=== PATIENT | male | born 1945 | race Caucasian/White ===

== ENCOUNTER → 2018-11-16 11:30 | Outpatient (CLI) | payer MEDICARE | END | disposition home or self-care (01) | LOC: D.CT 11:30 | DX: I70.219 Atherosclerosis of native arteries of extremities with intermittent claudication, unspecified extremity (principal); I71.4 Abdominal aortic aneurysm, without rupture ==

== ENCOUNTER → 2019-06-12 09:17 | Outpatient (CLI) | payer MEDICARE | END | disposition home or self-care (01) | LOC: D.US 09:17 | PROVIDERS: ATTEND Internal Medicine Cardiovascular Disease | DX: I71.4 Abdominal aortic aneurysm, without rupture (principal) ==

== ENCOUNTER 2020-03-25 11:44 | Inpatient (IN) | payer MEDICARE ==
[~2020-03-25] VITALS: Ht 165.1 cm; Wt 66.1 kg
--- NOTE | ~2020-03-25 | EC ---
PATIENT:CHYNA HICKEY DATE OF SERVICE: 03/25/20 SEX: M MEDICAL RECORD: [id number] DATE OF : 43 LOCATION:[facility] D230 AGE OF PATIENT: 74 ADMISSION DATE: 03/25/20 REFERRING PHYSICIAN: INTERPRETING PHYSICIAN: ANGEL LUIS ESCOBAR MD ECHOCARDIOGRAM REPORT ECHO CHARGES 5 ECHO LIMITED Date: 04/11/20 CLINICAL DIAGNOSIS: HUPOXEMIA, SHUNT ECHOCARDIOGRAPHIC MEASUREMENTS (adult normal given) AC root (d.<3.7cm) 0 cm LV Septum d (<1.2 cm> 0 cm Valve Excursion 0 cm LV Septum (systole) 0 cm Left Atria (s.<4.0cm> 0 cm LVPW d(<1.2cm) 0 cm RV (d.<2.3cm) 0 cm LVPW (sytole) 0 cm LV diastole(<5.6CM) 0 cm MV E-F(>70mm/sec) 0 cm LV systole 0 cm LVOT Diameter 1.9 cm MV exc.(>10mm) 0 cm Est.ejection fraction (50-75%) % DOPPLER: LVIT cm/sec A 0 cm/sec E 0 cm/sec LA 0 cm/sec RVSP 0 mmHg LVOT 0 cm/sec AOP1/2T 0 m/s Asc. Ao 0 cm/sec RVOT 0 cm/sec RA 0 cm/sec PA 0 cm/sec AV Gradient Peak 0 mmHg AV Mean 3.07 mmHg AV Area 0 cm MV Gradient Peak 0 mmHg MV Mean 0 mmHg MV Area 0 cm COMMENTS: Assembler Corncob Pipes: Albina WANGDAVID MELBA Patient Care: 3 Dr. Nunez TAPE# PACS Pericardial Effusion Y DATE OF SERVICE: This is actually a bubble study. Grossly, LVH appears present. LV internal dimension is normal. LV is mildly globally hypokinetic, EF at lower limits of normal, mildly reduced at 40% to 45%. Aortic valve is tricuspid. No evidence of stenosis by Doppler interrogation. Left atrium grossly appears normal. Mitral valve shows no prolapse. Trivial MR. Right-sided chamber grossly normal. Mild TR. ECHOCARDIOGRAM REPORT [id number] CHYNA HICKEY Bubble study was performed with venous contrast and this showed no evidence of ASD, VSD or PFO. TRANSINT:[id number] Voice Confirmation ID: [id number] DOCUMENT ID: [id number] ANGEL LUIS ESCOBAR MD CC: [id number] DICTATION DATE: 04/12/20 0958 PATIENT CARE ASSISTANT: 04/12/20 1506 ADM IN [place] [id number] [place] [id number]
[2020-03-25] MEDS ORDERED: K-DUR20 MEQ PO (11:52)
[2020-03-25] MEDS ORDERED: LASIX80 MG PO (11:53)
[2020-03-25] MEDS ORDERED: LISINOPRIL5 MG PO (11:53)
[2020-03-25] MEDS ORDERED: MIDODRINE HCL10 MG PO (11:53)
[2020-03-25] MEDS ORDERED: LIPITOR40 MG PO (11:53)
[2020-03-25] MEDS ORDERED: ELIQUIS5 MG PO (11:54)
[2020-03-25] MEDS ORDERED: ALBUTEROL SULF8.5 GM INH (11:55)
[2020-03-25] MEDS ORDERED: IPRAT-ALBUT 0.5-3 ML UPD (11:55)
[2020-03-25 12:38] LABS: BASOPHILS 0.5 % (0-2); EOSINOPHILS 1.7 % (0-7); HEMATOCRIT 35.9 % (42.0-54.0); HEMOGLOBIN 11.3 g/dL (13.5-17.5); IMMATURE GRANULOCYTES 0.3 % (0-5); LYMPHOCYTES 23.2 % (15-50); MCH 28.5 pg (26.0-34.0); MCHC 31.5 g/dL (31.0-37.0); MCV 90.7 fL (80.0-100.0); MEAN PLATELET VOLUME 10.2 fL (7.4-10.4); NEUTROPHILS 66.3 % (40-80); PLATELET COUNT 192 10x3/uL (130-400); RBC 3.96 10x6/uL (4.20-6.10); WBC 7.7 10x3/uL (4.8-10.8)
[2020-03-25 12:55] LABS: ALBUMIN 3.9 g/dL (3.4-5.0); ALKALINE PHOSPHATASE 74 U/L (30-120); ALT (SGPT) 26 U/L (10-68); CALC OSMOLALITY 306 mosm/kg (275-300); CALCIUM 8.4 mg/dL (8.5-10.1); CARBON DIOXIDE 16.2 mmol/L (21.0-32.0); CHLORIDE - SERUM 104 mmol/L (98-107); CKMB 2.2 U/L (0.0-3.6); CREATINE KINASE 52 UL (21-232); CREATININE - SERUM 7.5 mg/dL (0.6-1.3); GLUCOSE 98 mg/dL (74-106); MAGNESIUM - SERUM 1.5 mg/dL (1.8-2.4); PROTEIN - SERUM 7.8 g/dL (6.4-8.2); SODIUM 136 mmol/L (136-145); TROPONIN-I 0.023 ng/mL (0.000-0.060); UREA NITROGEN 110 mg/dL (7-18); eGFR NON AFRICAN AMERICAN 8 mL/min (90-120)
[2020-03-25 12:59] LABS: POTASSIUM - SERUM 6.4 mmol/L (3.5-5.1)
[2020-03-25 13:00] VITALS: BP 86/53
[2020-03-25 13:04] LABS: BACTERIA MODERATE /hpf (NEGATIVE); BILIRUBIN NEGATIVE (NEGATIVE); EPITHELIAL CELLS 0-5 /hpf (0-5); GLUCOSE NEGATIVE (NEGATIVE); KETONE NEGATIVE (NEGATIVE); NITRITE NEGATIVE (NEGATIVE); RED CELLS - URINE 0-5 /hpf (0-5); SPECIFIC GRAVITY 1.015 (1.005-1.020); UROBILINOGEN NORMAL (NORMAL)
[2020-03-25 13:05] LABS: CALCIUM OXALATE CRYSTALS OCC /hpf (NONE SEEN); HYALINE CAST 0-5 /lpf (NONE SEEN)
[2020-03-25 14:00] VITALS: BP 88/61
[2020-03-25 15:15] VITALS: BP 91/45
--- NOTE | 2020-03-25 15:36 | NUR ---
RECEIVED PT FROM ER, HOOKED PT O2 UP TO WALL, 2LITERS VIA NASAL CANNULA. NS RUNNING AT 200 INTO AN IV IN THE LEFT HAND. RESTING COMFORTABLY, DENIES ANY NEEDS. WILL CONTINUE TO MONITOR.
[2020-03-25 16:10] VITALS: BP 135/55
--- NOTE | 2020-03-25 16:14 | NUR ---
PT RESTING COMFORTABLY IN BED. DENIES ANY NEEDS AT THIS TIME. BED IN LOWEST POSITION, CALL LIGHT WITHIN REACH. WILL CONTINUE TO MONITOR.
[2020-03-25 16:22] VITALS: BP 91/45; BMI 22.1
--- NOTE | 2020-03-25 17:25 | NUR ---
ADMINISTERED MEDICATION, HUNG IV FLUIDS. PT UP RIGHT IN BED EATING DINNER. DENIES ANY NEEDS. BED IN LOWEST POSITION, BED RAILS X2, CALL LIGHT WITHIN REACH. WILL CONTINUE TO MONITOR.
[2020-03-25 17:31] LABS: APTT 40.8 SECONDS (22.8-39.4); INR 1.84 (0.85-1.17)
[2020-03-25 17:42] LABS: ANION GAP 23.6 mmol/L (8-16); CALCIUM 8.9 mg/dL (8.5-10.1); CARBON DIOXIDE 13.4 mmol/L (21.0-32.0); CREATININE - SERUM 6.8 mg/dL (0.6-1.3)
--- NOTE | 2020-03-25 18:23 | NUR ---
HUNG IV ANTIBIOTICS, TOLERATING WELL. RESTING COMFORTABLY IN BED, COMPLAINT OF BEING COLD, TURNED HEATER UP FOR PT. DENIES ANY OTHER NEEDS. WILL CONTINUE TO MONITOR.
--- NOTE | 2020-03-25 19:15 | NUR ---
REPORT RECEIVED, WILL CONTINUE POC. PATIENT IS AAOX4, LYING IN SEMI-FOWLERS POSITION. RR EVEN AND UNLABORED ON 2L NC, NO S/S OF DISTRESS OBSERVED. PIV TO LT HAND INFUSING LR @ 200ML/HR. PATIENT DENIES NEEDS AT THIS TIME. CL IN REACH, BED LOCKED AND LOWERED. WILL CTM.
[2020-03-25 22:16] VITALS: BP 88/45
[2020-03-26 00:40] VITALS: BP 89/53
--- NOTE | 2020-03-26 01:49 | NUR ---
I have reviewed this patient and I concur with the Shift Assessment completed by the Licensed Practical Nurse today this shift.
[2020-03-26 04:29] LABS: BILIRUBIN NEGATIVE (NEGATIVE); GLUCOSE NEGATIVE (NEGATIVE); KETONE NEGATIVE (NEGATIVE); NITRITE NEGATIVE (NEGATIVE); SPECIFIC GRAVITY 1.015 (1.005-1.020); UROBILINOGEN NORMAL (NORMAL)
[2020-03-26 04:31] LABS: BACTERIA NONE SEEN /hpf (NEGATIVE); EPITHELIAL CELLS 0-5 /hpf (0-5); RED CELLS - URINE NONE SEEN /hpf (0-5); WHITE CELLS - URINE 0-5 /hpf (NEGATIVE)
[2020-03-26 05:29] VITALS: BP 108/68
[2020-03-26 05:49] LABS: BASOPHILS 0.3 % (0-2); EOSINOPHILS 0.3 % (0-7); HEMATOCRIT 31.5 % (42.0-54.0); HEMOGLOBIN 10.1 g/dL (13.5-17.5); IMMATURE GRANULOCYTES 0.2 % (0-5); LYMPHOCYTES 4.7 % (15-50); MCH 28.5 pg (26.0-34.0); MCHC 32.1 g/dL (31.0-37.0); MEAN PLATELET VOLUME 10.4 fL (7.4-10.4); MONOCYTES 5.6 % (2-11); NEUTROPHILS 88.9 % (40-80); PLATELET COUNT 160 10x3/uL (130-400); RBC 3.55 10x6/uL (4.20-6.10); RDW 18.1 % (11.5-14.5); WBC 8.8 10x3/uL (4.8-10.8)
[2020-03-26 06:23] LABS: ALBUMIN 3.2 g/dL (3.4-5.0); ALKALINE PHOSPHATASE 67 U/L (30-120); AMYLASE - SERUM 39 U/L (25-115); BILIRUBIN - TOTAL 0.37 mg/dL (0.2-1.3); CALCIUM 8.3 mg/dL (8.5-10.1); CHLORIDE - SERUM 108 mmol/L (98-107); CREATINE KINASE 127 UL (21-232); CREATININE - SERUM 5.9 mg/dL (0.6-1.3); PHOSPHOROUS 5.9 mg/dL (2.5-4.9); POTASSIUM - SERUM 5.1 mmol/L (3.5-5.1); PRO BNP 2187 pg/mL (0-450); SODIUM 141 mmol/L (136-145); TROPONIN-I 0.043 ng/mL (0.000-0.060); UREA NITROGEN 93 mg/dL (7-18); URIC ACID 13.7 mg/dL (2.6-7.2); eGFR NON AFRICAN AMERICAN 10 mL/min (90-120)
[2020-03-26 06:29] LABS: MCV 88.7 fL (80.0-100.0)
[2020-03-26 06:41] LABS: ALT (SGPT) 15 U/L (10-68); CALC OSMOLALITY 312 mosm/kg (275-300); CARBON DIOXIDE 18.1 mmol/L (21.0-32.0); GLUCOSE 148 mg/dL (74-106)
[2020-03-26 08:40] VITALS: BP 92/45
[2020-03-26 11:29] VITALS: BP 145/49
[2020-03-26 12:42] VITALS: Ht 165.1 cm; Wt 66.1 kg
--- NOTE | 2020-03-26 14:12 | NUR ---
I have reviewed this patient and I concur with the Shift Assessment completed by the Licensed Practical Nurse today this shift.
[2020-03-26 15:56] VITALS: BP 102/63
--- NOTE | 2020-03-26 16:59 | NUR ---
GOLF [employer]UB HEAD INSPECTOR AND ADJUSTER STATED TO ME SHE HELPED PT TO BATHROOM AND IT LOOKED LIKE PT HAD BLOOD IN STOOL. I VERBALIZED UNDERSTANDING. CALLED AND SPOKE WITH JOSE MANUEL CARVAJAL AND STATED THIS TO HER AND SHE STATES TO ORDER AN OCCULT BLOOD STOOL. I VERBALIZED UNDERSTANDING. HTO PLACED IN COMMODE FOR COLLECTION AND EXPLAINED HOW TO COLLECT TO PT.
--- NOTE | 2020-03-26 17:16 | NUR ---
THIS NURSE AND SHAHNAZ CARVAJAL SPOKE WITH PT'S BROTHER OVER THE PHONE AND GVE HIM AN UPDATE ON PT.
--- NOTE | 2020-03-26 19:35 | NUR ---
REPORT RECEIVED, WILL CONTINUE POC. PATIENT IS AAOX4, LYING IN SEMI-FOWLERS POSITION. NO S/S OF DISTRESS OBSERVED, RR EVEN AND UNLABORED ON 2L O2 VIA NC. PIV TO LT FA INFUSING SODIUM BICARB @ 40ML/HR. PATIENT DENIES NEEDS AT THIS TIME. CL IN REACH, BED LOCKED AND LOWERED. WILL CTM.
[2020-03-26 20:00] VITALS: BP 104/71
--- NOTE | 2020-03-26 20:19 | NUR ---
PATIENT HAD MED CLEAR, MUCOUS TINGED WITH BRIGHT RED BLOOD BM. TRAILED IT ALL THE WAY TO THE BATHROOM. WAS ABLE TO OBTAIN A SAMPLE FOR THE HAT IN HIS TOILET AND SENT TO LAB. ASSISTED PATIENT INTO SHOWER TO CLEAN UP.
--- NOTE | 2020-03-26 23:23 | NUR ---
TELEMETRY TECHNICIAN REPORTED PATIENT BP 83/47, PATIENT DOES NOT HAVE PRN MED THAT WAS STATED IN REPORT FROM DAY SHIFT NURSE. PAGED CHANDU AVENDAÑO APN.
[2020-03-27] VITALS: BP 83/47
--- NOTE | 2020-03-27 00:10 | NUR ---
PAGED CARDIOLOGY AGAIN.
--- NOTE | 2020-03-27 00:42 | NUR ---
STILL NO RETURN CALL FROM CARDIOLOGY. PAGED AGAIN.
--- NOTE | 2020-03-27 00:45 | NUR ---
NEW ORDERS RECEIVED FROM SATHISH OSBORNE APN
--- NOTE | 2020-03-27 02:22 | NUR ---
I have reviewed this patient and I concur with the Shift Assessment completed by the Licensed Practical Nurse today this shift.
[2020-03-27 04:00] VITALS: BP 75/45
[2020-03-27 04:50] LABS: BASOPHILS 0.1 % (0-2); EOSINOPHILS 0.1 % (0-7); HEMATOCRIT 30.7 % (42.0-54.0); HEMOGLOBIN 9.8 g/dL (13.5-17.5); IMMATURE GRANULOCYTES 0.3 % (0-5); LYMPHOCYTES 6.7 % (15-50); MCH 28.2 pg (26.0-34.0); MCHC 31.9 g/dL (31.0-37.0); MCV 88.5 fL (80.0-100.0); MEAN PLATELET VOLUME 10.3 fL (7.4-10.4); MONOCYTES 7.9 % (2-11); NEUTROPHILS 84.9 % (40-80); PLATELET COUNT 147 10x3/uL (130-400); RBC 3.47 10x6/uL (4.20-6.10); RDW 18.2 % (11.5-14.5)
[2020-03-27 04:53] LABS: WBC 14.2 10x3/uL (4.8-10.8)
[2020-03-27 04:59] LABS: APTT 40.5 SECONDS (22.8-39.4); INR 2.19 (0.85-1.17)
[2020-03-27 05:29] LABS: ALBUMIN 2.7 g/dL (3.4-5.0); BILIRUBIN - TOTAL 0.42 mg/dL (0.2-1.3); PHOSPHOROUS 5.2 mg/dL (2.5-4.9); THYROID STIMULATING HORMONE 0.88 uIU/mL (0.36-3.74)
[2020-03-27 05:32] LABS: ANION GAP 13.7 mmol/L (8-16); CARBON DIOXIDE 24.1 mmol/L (21.0-32.0); CREATININE - SERUM 3.8 mg/dL (0.6-1.3); MAGNESIUM - SERUM 1.1 mg/dL (1.8-2.4); POTASSIUM - SERUM 3.8 mmol/L (3.5-5.1)
--- NOTE | 2020-03-27 08:52 | NUR ---
RECEIVED PT. REPORTED TO BE ALERT AND ORIENTED, UP ADLIB. PT HAS STRICT I&O'S. LOW BP REPORTED BUT IS ASTMPTOMATIC. 2L OF O2 VIA NASAL CANNULA, PT IS A CHRONIC O2 USER. LEFT FOREARM IV WITH BICARB @ 40. WEARING TELMETRY. PT IS RESTING COMFORTABLY IN BED, ALERT AND ORIENTED X4 UPON ENTERING. DENIES ANY NEEDS AT THIS TIME. WILL CONTINUE TO MONITOR.
[2020-03-27 09:09] LABS: HEPATITIS C ANTIBODY <0.1 S/CO RAT (0.0-0.9)
--- NOTE | 2020-03-27 10:27 | NUR ---
ADMINISTERED MAGNESIUM PER PROTOCOL FOR LOW MAG LEVELS. NO DIFFICULTY. PT RESTING COMFORTABLY IN BED. DENIES ANY NEEDS AT THIS TIME. WILL CONTINUE TO MONITOR.
[2020-03-27 11:09] VITALS: BP 78/50
--- NOTE | 2020-03-27 12:21 | NUR ---
ADMINISTERED PO ANTIBIOTICS AT THIS TIME, NO DIFFICULTY. PT IS RESTING COMFORTABLY IN BED AT THIS TIME. DENIES ANY NEEDS. WILL CONTINUE TO MONITOR.
--- NOTE | 2020-03-27 13:25 | NUR ---
I have reviewed this patient and I concur with the Shift Assessment completed by the Licensed Practical Nurse today this shift.
[2020-03-27 13:55] VITALS: BP 76/41
[2020-03-27 18:31] VITALS: BP 82/53
--- NOTE | 2020-03-27 19:10 | NUR ---
REPORT RECEIVED, WILL CONTINUE POC. PATIENT IS AAOX4, LYING IN SEMI-FOWLERS POSITION. NO S/S OF DISTRESS OBSERVED, RR EVEN AND UNLABORED ON 2L O2 VIA NC. PIV TO LT FA INFUSING PLASMALYTE. PATIENT DENIES NEEDS AT THIS TIME. CL IN REACH, BED LOCKED AND LOWERED. WILL CTM.
[2020-03-27 20:00] VITALS: BP 71/42
--- NOTE | 2020-03-28 02:44 | NUR ---
I have reviewed this patient and I concur with the Shift Assessment completed by the Licensed Practical Nurse today this shift.
[2020-03-28 04:00] VITALS: BP 90/52
[2020-03-28 04:52] LABS: BASOPHILS 0.2 % (0-2); EOSINOPHILS 0.2 % (0-7); HEMATOCRIT 29.1 % (42.0-54.0); HEMOGLOBIN 9.3 g/dL (13.5-17.5); IMMATURE GRANULOCYTES 0.1 % (0-5); LYMPHOCYTES 8.5 % (15-50); MCH 28.4 pg (26.0-34.0); MEAN PLATELET VOLUME 10.8 fL (7.4-10.4); PLATELET COUNT 153 10x3/uL (130-400); RBC 3.27 10x6/uL (4.20-6.10); RDW 17.9 % (11.5-14.5); WBC 14.6 10x3/uL (4.8-10.8)
[2020-03-28 05:04] LABS: % SATURATION 7 % (15-55); ALBUMIN 2.6 g/dL (3.4-5.0); ANION GAP 14.1 mmol/L (8-16); BILIRUBIN - DIRECT 0.13 mg/dL (0.00-0.30); BILIRUBIN - INDIRECT 0.35 mg/dL (0.00-1.00); BILIRUBIN - TOTAL 0.48 mg/dL (0.2-1.3); CALCIUM 8.3 mg/dL (8.5-10.1); CARBON DIOXIDE 26.3 mmol/L (21.0-32.0); IRON 17 ug/dl (35-150); MAGNESIUM - SERUM 1.4 mg/dL (1.8-2.4); PHOSPHOROUS 4.2 mg/dL (2.5-4.9); POTASSIUM - SERUM 3.4 mmol/L (3.5-5.1); PROTEIN - SERUM 6.2 g/dL (6.4-8.2); TOTAL IRON BIND CAPACITY 242 ug/dl (260-445); UNSAT IRON BIND CAPACITY 225 ug/dl (150-375)
[2020-03-28 05:05] LABS: CREATININE - SERUM 2.7 mg/dL (0.6-1.3)
[2020-03-28 09:14] VITALS: BP 101/66
--- NOTE | 2020-03-28 09:39 | NUR ---
CALLED AND SPOKE WITH KIRBY IN PHARMACY AND STATED TO HER FLOLATRICIA WAS NEVER BROUGHT UP. SHE STATES SHE WILL BRING IT UP TO ME. I VERBALIZED UNDERSTANDING.
--- NOTE | 2020-03-28 10:01 | NUR ---
PT ONLY WANTS TO TAKE 20MEQ AND NOT THE 40MEQ AND TO HAVE POTASSIUM LEVEL CHECKED IN AM NOT IN FOUR HOURS CALLED [facility] IN ELECTROLYE PROTOCOL. ANNUSOL SUPPOSITORY GIVEN PT TOLERATED WELL. NOTED SLOW TO ELROY REDNESS TO COCCYX AND BUTTOCK. REMINDED PT TO TURN Q2H. PT VERBALIZED UNDERSTANDING. ASKED PT IF HE WOULD LIKE SOME BUTTPASTE AND PT DENIED NEED FOR BUTTPASTE. WORKED WITH PT ON INCENTIVE SPIROMETRY.
[2020-03-28 12:18] VITALS: BP 82/47
--- NOTE | 2020-03-28 12:29 | NUR ---
Nutrition Follow-up: PO intake has been poor but pt reports eating some cereal for breakfast and requested a tuna salad sandwich for lunch. Denies N/V. Loose BM this AM. Noted diet liberalized. Refuses nutrition supplements. Diet: Regular PO intake: 0% yesterday Wt: 136# (03/27); 133# (03/26) Labs noted: K+ 3.4, PO4 4.2, Alb 2.6 Meds noted: Pepcid, electrolyte protocol -Encourage PO intake and honor food preferences; tuna salad sandwich ordered for pt's lunch today. -Monitor wt; noted daily wts ordered. -RD following.
--- NOTE | 2020-03-28 16:18 | NUR ---
I have reviewed this patient and I concur with the Shift Assessment completed by the Licensed Practical Nurse today this shift.
[2020-03-28 17:15] VITALS: BP 96/64
--- NOTE | 2020-03-28 19:17 | NUR ---
BEDSIDE REPORT RECEIVED, PT CARE ASSUMED. INTRODUCED SELF AND WROTE NAME ON BOARD. PT SITTING UP IN BED, WATCHING TV, AAOX4. DENIES ANY NEEDS AT THIS TIME. BED IN LOWEST POSITION, SR X1, CALL LIGHT AND URINAL WITHIN REACH. WILL CONTINUE TO MONITOR.
[2020-03-28 21:21] VITALS: BP 84/45
[2020-03-29] VITALS: BP 77/44
[2020-03-29 04:49] VITALS: BP 77/42
[2020-03-29 05:06] LABS: BASOPHILS 0.2 % (0-2); HEMATOCRIT 31.2 % (42.0-54.0); HEMOGLOBIN 9.8 g/dL (13.5-17.5); IMMATURE GRANULOCYTES 0.2 % (0-5); LYMPHOCYTES 21.1 % (15-50); MCH 28.6 pg (26.0-34.0); MCHC 31.4 g/dL (31.0-37.0); MEAN PLATELET VOLUME 10.3 fL (7.4-10.4); MONOCYTES 11.3 % (2-11); NEUTROPHILS 65.2 % (40-80); PLATELET COUNT 181 10x3/uL (130-400); RBC 3.43 10x6/uL (4.20-6.10); RDW 18.2 % (11.5-14.5); WBC 12.1 10x3/uL (4.8-10.8)
[2020-03-29 05:28] LABS: ALBUMIN 2.6 g/dL (3.4-5.0); ANION GAP 15.3 mmol/L (8-16); BILIRUBIN - TOTAL 0.24 mg/dL (0.2-1.3); CALCIUM 8.3 mg/dL (8.5-10.1); CARBON DIOXIDE 23.1 mmol/L (21.0-32.0); MAGNESIUM - SERUM 1.7 mg/dL (1.8-2.4); POTASSIUM - SERUM 3.4 mmol/L (3.5-5.1); PROTEIN - SERUM 6.3 g/dL (6.4-8.2)
[2020-03-29 05:34] LABS: PHOSPHOROUS 2.7 mg/dL (2.5-4.9)
--- NOTE | 2020-03-29 08:59 | NUR ---
PT ALERT X 4. BREATH SOUNDS DIMINISHED, 5L O2 PER NC. IV TO LEFT FOREARM, PATENT, DRESSING CDI. BUTTOCKS REDDENED, MEPILEX APPLIED AND REMINDED PT TO TURN OFF OF BACK MUCH POSSIBLE. PT REPORTING NO PAIN AT THIS TIME. BED LOW, CALL LIGHT IN REACH. NO OTHER NEEDS AT THIS TIME.
[2020-03-29 10:44] VITALS: BP 94/50
[2020-03-29 12:59] VITALS: BP 86/50
[2020-03-29 16:00] VITALS: BP 107/42
--- NOTE | 2020-03-29 19:15 | NUR ---
BEDSIDE REPORT RECEIVED, PT CARE ASSUMED. WROTE NAME ON BOARD. PT SITTING UP IN BED, WATCHING TV, AAOX4. REQUESTED ICE WATER, PROVIDED. DENIES ANY OTHER NEEDS AT THIS TIME. BED IN LOWEST POSITION, SR X2, CALL LIGHT AND URINAL WITHIN REACH. WILL CONTINUE TO MONITOR.
[2020-03-29 20:00] VITALS: BP 90/55
[2020-03-30] VITALS: BP 92/55
[2020-03-30 04:00] VITALS: BP 99/52
[2020-03-30 05:37] LABS: BASOPHILS 0.4 % (0-2); EOSINOPHILS 3.2 % (0-7); HEMATOCRIT 27.2 % (42.0-54.0); HEMOGLOBIN 8.5 g/dL (13.5-17.5); IMMATURE GRANULOCYTES 0.3 % (0-5); LYMPHOCYTES 22.9 % (15-50); MCH 28.5 pg (26.0-34.0); MCHC 31.3 g/dL (31.0-37.0); MCV 91.3 fL (80.0-100.0); MEAN PLATELET VOLUME 9.7 fL (7.4-10.4); MONOCYTES 10.5 % (2-11); NEUTROPHILS 62.7 % (40-80); PLATELET COUNT 182 10x3/uL (130-400); RBC 2.98 10x6/uL (4.20-6.10); RDW 18.3 % (11.5-14.5)
[2020-03-30 05:38] LABS: WBC 7.2 10x3/uL (4.8-10.8)
[2020-03-30 05:59] LABS: ALBUMIN 2.2 g/dL (3.4-5.0); ANION GAP 9.6 mmol/L (8-16); BILIRUBIN - TOTAL 0.15 mg/dL (0.2-1.3); CALCIUM 7.8 mg/dL (8.5-10.1); CARBON DIOXIDE 27.2 mmol/L (21.0-32.0); MAGNESIUM - SERUM 1.8 mg/dL (1.8-2.4); POTASSIUM - SERUM 3.8 mmol/L (3.5-5.1); PROTEIN - SERUM 5.6 g/dL (6.4-8.2)
[2020-03-30 06:08] LABS: CREATININE - SERUM 1.4 mg/dL (0.6-1.3); PHOSPHOROUS 1.7 mg/dL (2.5-4.9)
[2020-03-30 09:18] VITALS: BP 118/68
[2020-03-30 12:56] VITALS: BP 104/59
[2020-03-30 17:23] VITALS: BP 114/55
--- NOTE | 2020-03-30 19:20 | NUR ---
RECEIVED REPORT, WILL ASSUME CARE OF PT, WATCHING TV, DENIES ANY NEEDS AT THIS TIME, BED IS LOW, SRX2, CALL LIGHT IN REACH, WILL CONTINUE PLAN OF CARE
[2020-03-30 20:00] VITALS: BP 124/49
[2020-03-31] VITALS: BP 136/57
[2020-03-31 04:00] VITALS: BP 106/66
--- NOTE | 2020-03-31 05:15 | NUR ---
I have reviewed this patient and I concur with the Shift Assessment completed by the Licensed Practical Nurse today this shift.
[2020-03-31 05:57] LABS: BASOPHILS 0.4 % (0-2); EOSINOPHILS 2.8 % (0-7); HEMATOCRIT 27.5 % (42.0-54.0); HEMOGLOBIN 8.5 g/dL (13.5-17.5); IMMATURE GRANULOCYTES 0.2 % (0-5); MCH 28.4 pg (26.0-34.0); MCHC 30.9 g/dL (31.0-37.0); MEAN PLATELET VOLUME 9.7 fL (7.4-10.4); MONOCYTES 14.1 % (2-11); NEUTROPHILS 64.5 % (40-80); PLATELET COUNT 202 10x3/uL (130-400); RBC 2.99 10x6/uL (4.20-6.10); RDW 18.5 % (11.5-14.5); WBC 8.2 10x3/uL (4.8-10.8)
[2020-03-31 06:42] LABS: ALBUMIN 2.3 g/dL (3.4-5.0); ANION GAP 11.8 mmol/L (8-16); BILIRUBIN - TOTAL 0.2 mg/dL (0.2-1.3); CALCIUM 7.8 mg/dL (8.5-10.1); CREATININE - SERUM 1.2 mg/dL (0.6-1.3); MAGNESIUM - SERUM 1.9 mg/dL (1.8-2.4); PHOSPHOROUS 1.8 mg/dL (2.5-4.9); POTASSIUM - SERUM 3.8 mmol/L (3.5-5.1); PROTEIN - SERUM 5.7 g/dL (6.4-8.2)
[2020-03-31 08:13] VITALS: BP 111/65
--- NOTE | 2020-03-31 12:03 | NUR ---
Pt has nonblanchable redness to his coccyx area. No open skin is noted. Recommend using calmoseptine cream to area as he is incontinent of bowels and it will help protect the skin. Discussed with him turning/repositioning to decrease pressure to the area, he voiced understanding but will require reminding to do so. Wound care will monitor.
[2020-03-31 12:21] VITALS: BP 107/59
--- NOTE | 2020-03-31 12:53 | MORECARE ---
CASE MANAGEMENT DISCHARGE SUMMARY PATIENT: CHYNA HICKEY UNIT: [id number] ADM DATE: 03/25/20 AGE: 74 : 44 SEX: M ROOM/BED: D.2106 AUTHOR: SUSIE RILEY PHYSICIAN: REFERRING PHYSICIAN: JUAN CARLOS ROMERO MD DATE OF SERVICE: 03/31/20 Discharge Plan Patient Name: CHYNA HICKEY [facility] [facility] 1945 Planned Disposition: Home or Self Care Anticipated Discharge Date: Discharge Date: Expected LOS: Initial Reviewer: [email or web address] Initial Review Date: 03/25/2020 Generated: 03/31/20 1:53 pm Patient Name: CHYNA HICKEY Page 12074 at 1253 All edits/amendments must be made on the electronic document DICTATION DATE: 03/31/20 1253 PRODUCTION MATERIAL HANDLER: JEREMIE 03/31/20 1253 RPT#: [id number] DC DATE: STATUS: ADM IN [facility] [address] [place] [address] END OF REPORT
--- NOTE | 2020-03-31 13:01 | MORECARE ---
CASE MANAGEMENT DISCHARGE SUMMARY PATIENT: CHYNA HICKEY UNIT: [id number] ADM DATE: 03/25/20 AGE: 74 : 44 SEX: M ROOM/BED: D.2106 AUTHOR: SUSIE RILEY PHYSICIAN: REFERRING PHYSICIAN: JUAN CARLOS ROMERO MD DATE OF SERVICE: 03/31/20 Discharge Plan Patient Name: CHYNA HICKEY [facility] [facility] 1945 Planned Disposition: Home or Self Care Anticipated Discharge Date: Discharge Date: Expected LOS: Initial Reviewer: [email or web address] Initial Review Date: 03/25/2020 Generated: 03/31/20 2:01 pm DCPIA - Discharge Planning Initial Assessment Updated by [email or web address]: Kathleen Miramontes on 03/31/20 12:55 pm * Is the patient Alert and Oriented? Yes * How many steps to enter\exit or inside your home? 5 w/rails * PCP Dr. Kelsea West * Pharmacy [facility] * Preadmission Environment Home with Family * ADLs Independent * Equipment Oxygen Rolling Walker * Other Equipment Portable O2 from [employer] * List name and contact numbers for known caregivers / representatives who currently or will assist patient after discharge: González Gallegos (brother) ?number. Jamie Robert (nephew) [phone] * Verbal permission to speak to the caregivers and representatives has been obtained from the patient. Yes * Community resources currently utilized None * Additional services required to return to the preadmission environment? No * Can the patient safely return to the preadmission environment? Yes * Has this patient been hospitalized within the prior 30 days at any hospital? No Last DP export: 03/31/20 11:53 am Patient Name: CHYNA HICKEY Page [id number] at 1301 All edits/amendments must be made on the electronic document DICTATION DATE: 03/31/20 1301 EDGE SANDER: JEREMIE 03/31/20 1301 RPT#: [id number] DC DATE: STATUS: ADM IN [facility] [address] [place] [address] END OF REPORT
--- NOTE | 2020-03-31 13:09 | MORECARE ---
CASE MANAGEMENT DISCHARGE SUMMARY PATIENT: CHYNA HICKEY UNIT: [id number] ADM DATE: 03/25/20 AGE: 74 : 44 SEX: M ROOM/BED: D.2106 AUTHOR: OSVALDO,DOC PHYSICIAN: REFERRING PHYSICIAN: JUAN CARLOS ROMERO MD DATE OF SERVICE: 03/31/20 Discharge Plan Patient Name: CHYNA HICKEY Facility: [facility]:[place] : 1945 Planned Disposition: Home or Self Care Anticipated Discharge Date: Discharge Date: Expected LOS: Initial Reviewer: [email or web address] Initial Review Date: 03/25/2020 Generated: 03/31/20 2:09 pm Comments DCP- Discharge Planning Updated by [email or web address]: Kathleen Miramontes on 03/31/20 12:[address] CM met with patient regarding DC needs/plans. Patient is A/O, lives in his home independently and states that his brother, González Gallegos, lives with him. PCP: Dr. Kelsea West. [facility] DME: walker, O2, Portable O2 ([employer]) in patient's room. Patient gives permission to speak with his brother, if needed. Denies use of community resources. CM discussed HHS, Rehab, SNF, but patient states he does not require any of those services at this time. patient states he can safely return to his previous environment. Denies being hospitalized within the past 30 days. Transportation will be provided by his brother at time of DC. DCPIA - Discharge Planning Initial Assessment Updated by [email or web address]: Kathleen Miramontes on 03/31/20 12:55 pm * Is the patient Alert and Oriented? Yes * How many steps to enter\exit or inside your home? 5 w/rails * PCP Dr. Kelsea West * [facility] * Preadmission Environment Home with Family * ADLs Independent * Equipment Oxygen Rolling Walker * Other Equipment Portable O2 from [employer] * List name and contact numbers for known caregivers / representatives who currently or will assist patient after discharge: González Gallegos (brother) ?number. Jamie Robert (nephew) [phone] * Verbal permission to speak to the caregivers and representatives has been obtained from the patient. Yes * Community resources currently utilized None * Additional services required to return to the preadmission environment? No * Can the patient safely return to the preadmission environment? Yes * Has this patient been hospitalized within the prior 30 days at any hospital? No Last DP export: 03/31/20 12:01 pm Patient Name: CHYNA HICKEY Page [phone] at 1309 All edits/amendments must be made on the electronic document DICTATION DATE: 03/31/20 1309 LEVEL DESIGNER: DM 03/31/20 1309 RPT#: [id number] DC DATE: STATUS: ADM IN [facility] [address] [place] [address] END OF REPORT
--- NOTE | 2020-03-31 16:17 | NUR ---
20G IV INFILTATED IN LEFT HAND. NO SWELLING NOTED. NEW IV IN RIGHT FOREARM 20G. NO S/S OF DISTRESS. WILL CONTINUE MONITOR.
[2020-03-31 16:27] VITALS: BP 105/65
--- NOTE | 2020-03-31 19:33 | NUR ---
PT IS ALERT AND AWKE SOME NEEDS ARE SEEN TOO AT THIS TIME BED LOW AND LOCKED AND CALL LIGHT IS WITH PT
--- NOTE | 2020-03-31 23:27 | NUR ---
SPO2 DOWN COUGH SIT UP SPO2 UP 93%
[2020-03-31 23:55] VITALS: BP 89/51
[2020-04-01 03:07] LABS: IMMUNOGLOBULIN E 842 IU/mL (6-495)
[2020-04-01 05:18] LABS: BASOPHILS 0.4 % (0-2); EOSINOPHILS 2.3 % (0-7); HEMATOCRIT 28.6 % (42.0-54.0); HEMOGLOBIN 8.5 g/dL (13.5-17.5); IMMATURE GRANULOCYTES 0.3 % (0-5); LYMPHOCYTES 17.1 % (15-50); MCHC 29.7 g/dL (31.0-37.0); MEAN PLATELET VOLUME 9.4 fL (7.4-10.4); MONOCYTES 13.1 % (2-11); NEUTROPHILS 66.8 % (40-80); PLATELET COUNT 220 10x3/uL (130-400); RBC 3.04 10x6/uL (4.20-6.10); RDW 18.5 % (11.5-14.5); WBC 9.4 10x3/uL (4.8-10.8)
[2020-04-01 05:29] LABS: MCV 94.1 fL (80.0-100.0)
[2020-04-01 05:30] LABS: ANION GAP 11.3 mmol/L (8-16); CARBON DIOXIDE 26.7 mmol/L (21.0-32.0); CREATININE - SERUM 1.2 mg/dL (0.6-1.3)
[2020-04-01 08:29] VITALS: BP 95/68
--- NOTE | 2020-04-01 11:04 | NUR ---
Nutrition Follow-up: Pt reports appetite fluctuating. States he did not eat dinner last night but ate cereal and half a piece of toast this AM. Denies N/V. Reports small loose BM this AM. Noted GI signed off. Diet: Regular PO intake: 0-75% Wt: 136# (03/29) Labs noted: Ca 8.0 Meds noted: Pepcid, electrolyte protocol -Encourage PO intake and honor food preferences. -Monitor wt; noted daily wts ordered. -RD following.
[2020-04-01 12:22] VITALS: BP 116/63
--- NOTE | 2020-04-01 16:29 | NUR ---
I have reviewed this patient and I concur with the Shift Assessment completed by the Licensed Practical Nurse today this shift.
--- NOTE | 2020-04-01 16:43 | NUR ---
I have reviewed this patient and I concur with the Shift Assessment completed by the Licensed Practical Nurse today this shift.
[2020-04-01 17:13] VITALS: BP 91/52
--- NOTE | 2020-04-01 17:31 | NUR ---
I have reviewed this patient and I concur with the Shift Assessment completed by the Licensed Practical Nurse today this shift.
--- NOTE | 2020-04-01 19:29 | NUR ---
REPORT RECEIVED, WILL CONTINUE POC. PATIENT IS AAOX4, LYING IN SEMI-FOWLERS POSITION. NO S/S OF DISTRESS OBSERVED, RR EVEN AND UNLABORED ON 4L O2 VIA NC. PATIENT DENIES NEEDS AT THIS TIME. CL IN REACH, BED LOCKED AND LOWERED. WILL CTM.
[2020-04-01 20:00] VITALS: BP 87/54
[2020-04-02] VITALS: BP 100/57
[2020-04-02 04:00] VITALS: BP 104/65
--- NOTE | 2020-04-02 04:27 | NUR ---
PATIENT REFUSED TO BE WEIGHED THIS AM
[2020-04-02 06:29] LABS: BASOPHILS 0.4 % (0-2); EOSINOPHILS 1.8 % (0-7); HEMATOCRIT 29.9 % (42.0-54.0); HEMOGLOBIN 8.9 g/dL (13.5-17.5); IMMATURE GRANULOCYTES 0.5 % (0-5); LYMPHOCYTES 16.7 % (15-50); MCH 28.4 pg (26.0-34.0); MCHC 29.8 g/dL (31.0-37.0); MCV 95.5 fL (80.0-100.0); MEAN PLATELET VOLUME 9.5 fL (7.4-10.4); MONOCYTES 9.2 % (2-11); NEUTROPHILS 71.4 % (40-80); RBC 3.13 10x6/uL (4.20-6.10); RDW 18.8 % (11.5-14.5); WBC 9.3 10x3/uL (4.8-10.8)
[2020-04-02 06:37] LABS: PLATELET COUNT 272 10x3/uL (130-400)
[2020-04-02 06:49] LABS: ANION GAP 10.3 mmol/L (8-16); CALCIUM 8.3 mg/dL (8.5-10.1); CARBON DIOXIDE 27.2 mmol/L (21.0-32.0); CREATININE - SERUM 1.1 mg/dL (0.6-1.3); POTASSIUM - SERUM 4.5 mmol/L (3.5-5.1)
[2020-04-02 08:00] VITALS: BP 123/73
--- NOTE | 2020-04-02 11:42 | NUR ---
I have reviewed this patient and I concur with the Shift Assessment completed by the Licensed Practical Nurse today this shift.
[2020-04-02 12:00] VITALS: BP 95/55
[2020-04-02 16:00] VITALS: BP 95/57
--- NOTE | 2020-04-02 19:45 | NUR ---
PT LYING IN BED AWAKE ALERT AND ORIENTED. NO SIGNS OF DISTRESS NOTED. RESPIRATIONS EVEN AND UNLABORED. RESPIRATORY IS AT BEDSIDE. CALL LIGHT WITH IN REACH. NO COMPLAINTS AT THIS TIME. WILL CONTINUE TO MONITOR
[2020-04-02 20:00] VITALS: BP 103/62
[2020-04-03 04:00] VITALS: BP 110/65; BP 113/74
--- NOTE | 2020-04-03 05:48 | NUR ---
PT LYING IN BED NO SIGNS OF DISTRESS NOTED. NO COMPLAINTS AT THIS TIME. CALL LIGHT WITH IN REACH.
[2020-04-03 06:44] LABS: CALC OSMOLALITY 283 mosm/kg (275-300); CALCIUM 8.2 mg/dL (8.5-10.1); CARBON DIOXIDE 22.1 mmol/L (21.0-32.0); CHLORIDE - SERUM 110 mmol/L (98-107); CREATININE - SERUM 0.9 mg/dL (0.6-1.3); GLUCOSE 77 mg/dL (74-106); POTASSIUM - SERUM 4.9 mmol/L (3.5-5.1); SODIUM 143 mmol/L (136-145); UREA NITROGEN 12 mg/dL (7-18); eGFR NON AFRICAN AMERICAN 87 mL/min (90-120)
[2020-04-03 08:13] LABS: BASOPHILS 0.3 % (0-2); HEMATOCRIT 30.3 % (42.0-54.0); LYMPHOCYTES 14.7 % (15-50); MCH 28.5 pg (26.0-34.0); MCHC 29.7 g/dL (31.0-37.0); MCV 95.9 fL (80.0-100.0); MONOCYTES 9.5 % (2-11); NEUTROPHILS 73.5 % (40-80); PLATELET COUNT 299 10x3/uL (130-400); RBC 3.16 10x6/uL (4.20-6.10); RDW 18.9 % (11.5-14.5); WBC 8.6 10x3/uL (4.8-10.8)
[2020-04-03 08:56] VITALS: BP 120/76
--- NOTE | 2020-04-03 09:38 | NUR ---
ASSESSMENT DONE. DENIES NEEDS
[2020-04-03 13:50] VITALS: BP 104/63
--- NOTE | 2020-04-03 14:35 | NUR ---
I have reviewed this patient and I concur with the Shift Assessment completed by the Licensed Practical Nurse today this shift.
--- NOTE | 2020-04-03 19:22 | NUR ---
AT REST EASILY AROUSED DENIES NEEDS AT THIS TIME BIPAPM IS IN PLACE BED LOW AND LOCKED
[2020-04-03 19:23] VITALS: BP 116/71
[2020-04-03 20:00] VITALS: BP 120/83
[2020-04-04 04:00] VITALS: BP 120/75
[2020-04-04 05:03] LABS: BASOPHILS 0.6 % (0-2); EOSINOPHILS 1.8 % (0-7); HEMATOCRIT 28.1 % (42.0-54.0); HEMOGLOBIN 8.3 g/dL (13.5-17.5); IMMATURE GRANULOCYTES 0.8 % (0-5); LYMPHOCYTES 20.3 % (15-50); MCH 28.4 pg (26.0-34.0); MCHC 29.5 g/dL (31.0-37.0); MCV 96.2 fL (80.0-100.0); MEAN PLATELET VOLUME 9.2 fL (7.4-10.4); MONOCYTES 14.4 % (2-11); NEUTROPHILS 62.1 % (40-80); PLATELET COUNT 310 10x3/uL (130-400); RBC 2.92 10x6/uL (4.20-6.10); RDW 19.2 % (11.5-14.5); WBC 6.7 10x3/uL (4.8-10.8)
[2020-04-04 05:18] LABS: CALCIUM 8.2 mg/dL (8.5-10.1); CREATININE - SERUM 1.1 mg/dL (0.6-1.3)
[2020-04-04 05:30] LABS: CARBON DIOXIDE 28.9 mmol/L (21.0-32.0); POTASSIUM - SERUM 3.9 mmol/L (3.5-5.1)
--- NOTE | 2020-04-04 08:34 | NUR ---
SPOKE WITH YVETTE CARVAJAL ABOUT PT HAVING CRACKLES AND BEING VERY SOB AND GETTING HOME LASIX RESTARTED. SHE STATES SHE WILL LOOK AT GETTING LASIX STARTED BUT TO GO AHEAD AND ORDER CHEST XR AND ABG'S. I VERBALIZED UNDERSTANDING.
[2020-04-04 10:17] VITALS: BP 131/75
--- NOTE | 2020-04-04 11:06 | NUR ---
DR. TAYLOR STATES TO ME AND PT THAT PT NEEDS TO SIT IN CHAIR ALL DAY AND CAN GET BACK IN BED AFTER DINNER WHEN HE IS READY TO GO TO SLEEP. I VERBALIZED UNDERSTANDING. GOT PT A RECLINER CHAIR AND PT NOW SITTING UP IN RECLINER.
--- NOTE | 2020-04-04 11:07 | NUR ---
Nutrition Follow-up: Continues to report appetite fluctuation. States SOB affects PO intake. Denies N/V. ST signed off. Diet: Regular PO intake: 25-50% No new wt; last wt: 136# (03/29) Last BM: 04/02 per pt Labs noted: Ca 8.2 Meds noted: Pepcid -Encourage PO intake and honor food preferences. -Pt may benefit from appetite stimulant. -Monitor wt; noted daily wts ordered. -RD following.
[2020-04-04 14:42] VITALS: BP 128/66
--- NOTE | 2020-04-04 16:45 | NUR ---
PT SHOWERED AND COMPLETE LINEN CHANGE DONE.
[2020-04-04 18:14] VITALS: BP 97/52
--- NOTE | 2020-04-04 19:30 | NUR ---
PT IN BED, AAO X 3, RESP EVEN AND UNLABORED. NO DISTRESS NOTED, CL IN REACH, SR UP X 2.
[2020-04-04 21:21] VITALS: BP 90/51
[2020-04-05 00:01] VITALS: BP 100/60
--- NOTE | 2020-04-05 03:31 | NUR ---
I have reviewed this patient and I concur with the Shift Assessment completed by the Licensed Practical Nurse today this shift.
[2020-04-05 04:00] VITALS: BP 117/70
[2020-04-05 04:55] LABS: HEMATOCRIT 27.7 % (42.0-54.0); HEMOGLOBIN 8.5 g/dL (13.5-17.5); LYMPHOCYTES 22.9 % (15-50); MCH 29.1 pg (26.0-34.0); MCHC 30.7 g/dL (31.0-37.0); MCV 94.9 fL (80.0-100.0); MEAN PLATELET VOLUME 8.9 fL (7.4-10.4); NEUTROPHILS 67.6 % (40-80); PLATELET COUNT 307 10x3/uL (130-400); RBC 2.92 10x6/uL (4.20-6.10); RDW 19.1 % (11.5-14.5); WBC 7.2 10x3/uL (4.8-10.8)
[2020-04-05 05:11] LABS: ANION GAP 7.3 mmol/L (8-16); CALCIUM 8.2 mg/dL (8.5-10.1); CARBON DIOXIDE 31.4 mmol/L (21.0-32.0); CREATININE - SERUM 1.1 mg/dL (0.6-1.3); POTASSIUM - SERUM 3.7 mmol/L (3.5-5.1)
--- NOTE | 2020-04-05 07:40 | NUR ---
PT STANDY BY ASSIST FROM BED TO RECLINER CHAIR. PT STATES HE HEAS NO FURTHER NEEDS AT THIS TIME. BED LOW. CL IN REACH.
[2020-04-05 08:25] VITALS: BP 116/70
[2020-04-05 12:46] VITALS: BP 95/51
[2020-04-05 16:21] VITALS: BP 92/58
--- NOTE | 2020-04-05 17:23 | NUR ---
I have reviewed this patient and I concur with the Shift Assessment completed by the Licensed Practical Nurse today this shift.
[2020-04-05 20:00] VITALS: BP 99/54
[2020-04-06] VITALS: BP 114/67
[2020-04-06 04:00] VITALS: BP 99/56
[2020-04-06 05:44] LABS: HEMATOCRIT 27.7 % (42.0-54.0); HEMOGLOBIN 8.6 g/dL (13.5-17.5); LYMPHOCYTES 15.4 % (15-50); MCH 29.8 pg (26.0-34.0); MCV 95.8 fL (80.0-100.0); MEAN PLATELET VOLUME 8.9 fL (7.4-10.4); NEUTROPHILS 72.1 % (40-80); PLATELET COUNT 297 10x3/uL (130-400); RBC 2.89 10x6/uL (4.20-6.10); RDW 19.3 % (11.5-14.5)
[2020-04-06 05:45] LABS: WBC 9.4 10x3/uL (4.8-10.8)
[2020-04-06 05:52] LABS: ANION GAP 6.1 mmol/L (8-16); CARBON DIOXIDE 33.3 mmol/L (21.0-32.0); CREATININE - SERUM 1.1 mg/dL (0.6-1.3); POTASSIUM - SERUM 3.4 mmol/L (3.5-5.1)
[2020-04-06 08:26] VITALS: BP 108/58
[2020-04-06 12:49] VITALS: BP 101/47
[2020-04-06 15:59] VITALS: BP 107/60
--- NOTE | 2020-04-06 19:39 | NUR ---
RECEIVED REPORT, WILL ASSUME CARE OF PT, DENIES ANY NEEDS, BED IS LOW, SRX2, CALL LIGHT IN REACH, WILL CONTINUE PLAN OF CARE
[2020-04-06 20:00] VITALS: BP 98/48
[2020-04-07] VITALS: BP 100/62
--- NOTE | 2020-04-07 03:43 | NUR ---
I have reviewed this patient and I concur with the Shift Assessment completed by the Licensed Practical Nurse today this shift.
[2020-04-07 04:00] VITALS: BP 100/62
[2020-04-07 05:49] LABS: CALC OSMOLALITY 283 mosm/kg (275-300); CALCIUM 8.2 mg/dL (8.5-10.1); CHLORIDE - SERUM 105 mmol/L (98-107); GLUCOSE 85 mg/dL (74-106); POTASSIUM - SERUM 3.6 mmol/L (3.5-5.1); SODIUM 143 mmol/L (136-145); UREA NITROGEN 13 mg/dL (7-18); eGFR NON AFRICAN AMERICAN 77 mL/min (90-120)
[2020-04-07 06:25] LABS: HEMATOCRIT 30.1 % (42.0-54.0); HEMOGLOBIN 9.2 g/dL (13.5-17.5); LYMPHOCYTES 15.9 % (15-50); MCH 29.4 pg (26.0-34.0); MCHC 30.6 g/dL (31.0-37.0); MCV 96.2 fL (80.0-100.0); MEAN PLATELET VOLUME 9.6 fL (7.4-10.4); NEUTROPHILS 73.1 % (40-80); PLATELET COUNT 324 10x3/uL (130-400); RBC 3.13 10x6/uL (4.20-6.10); RDW 19.3 % (11.5-14.5); WBC 10.3 10x3/uL (4.8-10.8)
--- NOTE | 2020-04-07 08:20 | NUR ---
PT RUNNING 89 CONTROLLED A-FIB. TUFTING MACHINE FIXER REPORTED PT WAS IN A-FLUTTER. WILL CONTINUE TO MONITOR. PT O2 ON 15L HIGH FLOW. PT SITING UP EATING BREKAFAST. WILL PLACE PT BACK ON BIPAP ONCE HE IS FINISHED EATING. BED LOW. CL IN REACH.
--- NOTE | 2020-04-07 08:26 | NUR ---
PT RUNNING 89 CONTROLLED A-FIB. CRIMINAL RESEARCH SPECIALIST REPORTED PT WAS IN A-FLUTTER. WILL COTNINUE TO MONITOR. PT O2 ON 15L HIGH FLOW. PT SITING UP EATING BREKAFAST. WILL PLACE PT BACK ON BIPAP WITH CPAP SETTINGS ONCE HE IS FINISHED EATING.
[2020-04-07 08:35] VITALS: BP 101/56
--- NOTE | 2020-04-07 10:18 | NUR ---
PT PLACED ON BIPAP.
--- NOTE | 2020-04-07 12:06 | NUR ---
PT TAKEN OFF BIPAP AND PLACED ON 15L HIGH FLOW NC TO EAT LUNCH.
[2020-04-07 13:15] VITALS: BP 103/61
[2020-04-07 18:23] VITALS: BP 106/57
[2020-04-07 20:54] VITALS: BP 95/56
[2020-04-08 00:30] VITALS: BP 88/59
[2020-04-08 06:01] LABS: HEMATOCRIT 35.1 % (42.0-54.0); HEMOGLOBIN 10.7 g/dL (13.5-17.5); LYMPHOCYTES 9.1 % (15-50); MCH 29.5 pg (26.0-34.0); MCHC 30.5 g/dL (31.0-37.0); MCV 96.7 fL (80.0-100.0); MEAN PLATELET VOLUME 8.9 fL (7.4-10.4); NEUTROPHILS 80.3 % (40-80); PLATELET COUNT 338 10x3/uL (130-400); RBC 3.63 10x6/uL (4.20-6.10); RDW 19.9 % (11.5-14.5); WBC 10.8 10x3/uL (4.8-10.8)
[2020-04-08 06:11] LABS: ANION GAP 6.5 mmol/L (8-16); CALCIUM 8.3 mg/dL (8.5-10.1); CREATININE - SERUM 1.1 mg/dL (0.6-1.3); POTASSIUM - SERUM 3.4 mmol/L (3.5-5.1)
[2020-04-08 06:28] VITALS: BP 113/65
[2020-04-08 06:30] LABS: CARBON DIOXIDE 40.9 mmol/L (21.0-32.0)
--- NOTE | 2020-04-08 07:00 | NUR ---
RECEIVED REPORT. ASSUMED CARE OF PATIENT. CALL LIGHT WITHIN REACH. PATIENT RESTING IN BED WITH EYES OPEN, BIPAP PATENT, RT AT BEDSIDE FOR NEBULIZER TREATMENT. PATIENT DENIES ANY NEEDS AT THIS TIME. WHITE BOARD UPDATED DURING BEDSIDE SHIFT REPORT. NO DISTRESS.
[2020-04-08 09:14] VITALS: BP 100/61
--- NOTE | 2020-04-08 11:19 | NUR ---
POTASSIUM SUPPLEMENT ADMINISTERED PER EP. PATIENT TAKEN OFF BIPAP AND PLACED ON HFNC. NO DISTRESS. CALL LIGHT WITHIN REACH.
--- NOTE | 2020-04-08 12:29 | MORECARE ---
CASE MANAGEMENT DISCHARGE SUMMARY PATIENT: CHYNA HICKEY UNIT: [id number] ADM DATE: 03/25/20 AGE: 74 : 44 SEX: M ROOM/BED: D.2106 AUTHOR: OSVALDO,DOC PHYSICIAN: REFERRING PHYSICIAN: JUAN CARLOS ROMERO MD DATE OF SERVICE: 04/08/20 Discharge Plan Patient Name: CHYNA HICKEY Facility: [facility]:[place] : 1945 Planned Disposition: Home or Self Care Anticipated Discharge Date: Discharge Date: Expected LOS: Initial Reviewer: [email or web address] Initial Review Date: 03/25/2020 Generated: 04/08/20 1:28 pm Comments DCP- Discharge Planning Updated by [email or web address]: Kathleen Miarmontes on 03/31/20 12:[address] CM met with patient regarding DC needs/plans. Patient is A/O, lives in his home independently and states that his brother, González Gallegos, lives with him. PCP: Dr. Kelsea West. [facility] DME: walker, O2, Portable O2 ([employer]) in patient's room. Patient gives permission to speak with his brother, if needed. Denies use of community resources. CM discussed HHS, Rehab, SNF, but patient states he does not require any of those services at this time. patient states he can safely return to his previous environment. Denies being hospitalized within the past 30 days. Transportation will be provided by his brother at time of DC. DCPIA - Discharge Planning Initial Assessment Updated by [email or web address]: Kathleen Miramontes on 03/31/20 12:55 pm * Is the patient Alert and Oriented? Yes * How many steps to enter\exit or inside your home? 5 w/rails * PCP Dr. Kelsea West * [facility] * Preadmission Environment Home with Family * ADLs Independent * Equipment Oxygen Rolling Walker * Other Equipment Portable O2 from [employer] * List name and contact numbers for known caregivers / representatives who currently or will assist patient after discharge: González Gallegos (brother) ?number. Jamie Robert (nephew) [phone] * Verbal permission to speak to the caregivers and representatives has been obtained from the patient. Yes * Community resources currently utilized None * Additional services required to return to the preadmission environment? No * Can the patient safely return to the preadmission environment? Yes * Has this patient been hospitalized within the prior 30 days at any hospital? No External Providers External Provider: [facility] Contact Date: Service Request Date: Service Type: Resolution: Reviewer: Comments: Last DP export: 03/31/20 12:09 pm Patient Name: CHYNA HICKEY Page [phone] at 1229 All edits/amendments must be made on the electronic document DICTATION DATE: 04/08/201228 OPEN HEARTH STOCKYARD SUPERVISOR: JEREMIE 04/08/20 1229 RPT#: [id number] DC DATE: STATUS: ADM IN [facility] [address] [place] [address] END OF REPORT
--- NOTE | 2020-04-08 12:36 | MORECARE ---
CASE MANAGEMENT DISCHARGE SUMMARY PATIENT: CHYNA HICKEY UNIT: [id number] ADM DATE: 03/25/20 AGE: 74 : 44 SEX: M ROOM/BED: D.2106 AUTHOR: OSVALDO,DOC PHYSICIAN: REFERRING PHYSICIAN: JUAN CARLOS ROMERO MD DATE OF SERVICE: 04/08/20 Discharge Plan Patient Name: CHNYA HICKEY Facility: [facility]:[place] : 1945 Planned Disposition: Home or Self Care Anticipated Discharge Date: Discharge Date: Expected LOS: Initial Reviewer: [email or web address] Initial Review Date: 03/25/2020 Generated: 04/08/20 1:35 pm Comments DCP- Discharge Planning Updated by [email or web address]: Kathleen Miramontes on 03/31/20 12:[address] CM met with patient regarding DC needs/plans. Patient is A/O, lives in his home independently and states that his brother, González Gallegos, lives with him. PCP: Dr. Kelsea West. [facility] DME: walker, O2, Portable O2 ([employer]) in patient's room. Patient gives permission to speak with his brother, if needed. Denies use of community resources. CM discussed HHS, Rehab, SNF, but patient states he does not require any of those services at this time. patient states he can safely return to his previous environment. Denies being hospitalized within the past 30 days. Transportation will be provided by his brother at time of DC. DCPIA - Discharge Planning Initial Assessment Updated by [id number]: Kathleen Miramontes on 03/31/20 12:55 pm * Is the patient Alert and Oriented? Yes * How many steps to enter\exit or inside your home? 5 w/rails * PCP Dr. Kelsea West * [facility] * Preadmission Environment Home with Family * ADLs Independent * Equipment Oxygen Rolling Walker * Other Equipment Portable O2 from [employer] * List name and contact numbers for known caregivers / representatives who currently or will assist patient after discharge: González Gallegos (brother) ?number. Jamie Robert (nephew) [phone] * Verbal permission to speak to the caregivers and representatives has been obtained from the patient. Yes * Community resources currently utilized None * Additional services required to return to the preadmission environment? No * Can the patient safely return to the preadmission environment? Yes * Has this patient been hospitalized within the prior 30 days at any hospital? No External Providers External Provider: [facility] Contact Date: Service Request Date: Service Type: Resolution: Reviewer: Comments: Last DP export: 04/08/20 11:29 a Patient Name: CHYNA HICKEY Page [id number] at 1236 All edits/amendments must be made on the electronic document DICTATION DATE: 04/08/20 1235 EVENT SET UP SPECIALIST: JEREMIE 04/08/20 1235 RPT#: [id number] DC DATE: STATUS: ADM IN [facility] [address] [place] [address] END OF REPORT
--- NOTE | 2020-04-08 12:50 | MORECARE ---
CASE MANAGEMENT DISCHARGE SUMMARY PATIENT: CHYNA HICKEY UNIT: [id number] ADM DATE: 03/25/20 AGE: 74 : 44 SEX: M ROOM/BED: D.2106 AUTHOR: OSVALDO,DOC PHYSICIAN: REFERRING PHYSICIAN: JUAN CARLOS ROMERO MD DATE OF SERVICE: 04/08/20 Discharge Plan Patient Name: CHYNA HICKEY Facility: [facility]:[place] : 1945 Planned Disposition: Home or Self Care Anticipated Discharge Date: Discharge Date: Expected LOS: Initial Reviewer: [email or web address] Initial Review Date: 03/25/2020 Generated: 04/08/20 1:50 pm Comments DCP- Discharge Planning Updated by [email or web address]: Kathleen Miramontes on 03/31/20 12:[address] CM met with patient regarding DC needs/plans. Patient is A/O, lives in his home independently and states that his brother, González Gallegos, lives with him. PCP: Dr. Kelsea West. [facility] DME: walker, O2, Portable O2 ([employer]) in patient's room. Patient gives permission to speak with his brother, if needed. Denies use of community resources. CM discussed HHS, Rehab, SNF, but patient states he does not require any of those services at this time. patient states he can safely return to his previous environment. Denies being hospitalized within the past 30 days. Transportation will be provided by his brother at time of DC. DCPIA - Discharge Planning Initial Assessment Updated by [id number]: Kathleen Miramontes on 03/31/20 12:55 pm * Is the patient Alert and Oriented? Yes * How many steps to enter\exit or inside your home? 5 w/rails * PCP Dr. Kelsea West * [facility] * Preadmission Environment Home with Family * ADLs Independent * Equipment Oxygen Rolling Walker * Other Equipment Portable O2 from [employer] * List name and contact numbers for known caregivers / representatives who currently or will assist patient after discharge: González Gallegos (brother) ?number. Jamie Robert (nephew) [phone] * Verbal permission to speak to the caregivers and representatives has been obtained from the patient. Yes * Community resources currently utilized None * Additional services required to return to the preadmission environment? No * Can the patient safely return to the preadmission environment? Yes * Has this patient been hospitalized within the prior 30 days at any hospital? No External Providers External Provider: [facility] Contact Date: Service Request Date: Service Type: Resolution: Reviewer: Comments: Last DP export: 04/08/20 11:36 a Patient Name: CHYNA HICKEY Page [phone] at 1250 All edits/amendments must be made on the electronic document DICTATION DATE: 04/08/20 1250 CASEY SAW OPERATOR: JEREMIE 04/08/20 1250 RPT#: [id number] DC DATE: STATUS: ADM IN [facility] [address] [place] [address] END OF REPORT
--- NOTE | 2020-04-08 14:14 | MORECARE ---
CASE MANAGEMENT DISCHARGE SUMMARY PATIENT: CHYNA HICKEY UNIT: [id number] ADM DATE: 03/25/20 AGE: 74 : 44 SEX: M ROOM/BED: D.2106 AUTHOR: OSVALDO,DOC PHYSICIAN: REFERRING PHYSICIAN: JUAN CARLOS ROMERO MD DATE OF SERVICE: 04/08/20 Discharge Plan Patient Name: CHYNA HICKEY Facility: [facility]:[place] : 1945 Planned Disposition: Home or Self Care Anticipated Discharge Date: Discharge Date: Expected LOS: Initial Reviewer: [email or web address] Initial Review Date: 03/25/2020 Generated: 04/08/20 3:14 pm Comments DCP- Discharge Planning Updated by [email or web address]: Saundrakaty Noriega on 04/08/20 1:[address] CM met with patient to discuss BIPAP/trilogy order from Dr. Emmanuel. Patient would like me to use [facility]. He states he gets his oxygen from [facility]. I called [facility] and clinical faxed. CM will continue to follow and assist with discharge planning/needs. DCP- Discharge Planning Updated by [email or web address]: Ktahleen Miramontes on 03/31/20 12:[address] CM met with patient regarding DC needs/plans. Patient is A/O, lives in his home independently and states that his brother, González Gallegos, lives with him. PCP: Dr. Kelsea West. [facility] DME: walker, O2, Portable O2 ([employer]) in patient's room. Patient gives permission to speak with his brother, if needed. Denies use of community resources. CM discussed HHS, Rehab, SNF, but patient states he does not require any of those services at this time. patient states he can safely return to his previous environment. Denies being hospitalized within the past 30 days. Transportation will be provided by his brother at time of DC. DCPIA - Discharge Planning Initial Assessment Updated by [id number]: Kathleen Miramontes on 03/31/20 12:55 pm * Is the patient Alert and Oriented? Yes * How many steps to enter\exit or inside your home? 5 w/rails * PCP Dr. Kelsea West * Pharmacy [facility] * Preadmission Environment Home with Family * ADLs Independent * Equipment Oxygen Rolling Walker * Other Equipment Portable O2 from [employer] * List name and contact numbers for known caregivers / representatives who currently or will assist patient after discharge: González Gallegos (brother) ?number. Jamie Robert (nephew) [phone] * Verbal permission to speak to the caregivers and representatives has been obtained from the patient. Yes * Community resources currently utilized None * Additional services required to return to the preadmission environment? No * Can the patient safely return to the preadmission environment? Yes * Has this patient been hospitalized within the prior 30 days at any hospital? No Coverage Notice Reviewer: [email or web address] Iris Noriega Notice Issued Date-Time: 04/08/2020 12:50 Notice Type: Patient Choice Letter Notice Delivered To: Patient Relationship to Patient: Self Chemical Equipment Repairer Name: Delivery Method: HAND - Hand Delivered Viki Days: Prior Verbal Notification: Recipient Understood Notice: Yes Recipient Signature: Yes Med Rec Note Co-signed by Attending: Coverage Notice Comment: myra for [facility] Last DP export: 04/08/20 11:50 a Patient Name: CHYNA HICKEY Page [phone] at 1414 All edits/amendments must be made on the electronic document DICTATION DATE: 04/08/201413 ROAD CLEANER: JEREMIE 04/08/201413 RPT#: [id number] DC DATE: STATUS: ADM IN [facility] [address] [place] [address] END OF REPORT
--- NOTE | 2020-04-08 14:37 | NUR ---
RESTING WITH EYES CLOSED. NO DISTRESS. CALL LIGHT WITHIN REACH.
[2020-04-08 16:52] VITALS: BP 111/57
[2020-04-08 20:00] VITALS: BP 100/55
[2020-04-09] VITALS: BP 103/62
[2020-04-09 04:00] VITALS: BP 108/62
[2020-04-09 05:49] LABS: BASOPHILS 0.2 % (0-2); EOSINOPHILS 1.1 % (0-7); HEMATOCRIT 35.8 % (42.0-54.0); HEMOGLOBIN 10.6 g/dL (13.5-17.5); IMMATURE GRANULOCYTES 0.3 % (0-5); LYMPHOCYTES 11.5 % (15-50); MCH 29.3 pg (26.0-34.0); MCHC 29.6 g/dL (31.0-37.0); MEAN PLATELET VOLUME 9.9 fL (7.4-10.4); MONOCYTES 11.6 % (2-11); NEUTROPHILS 75.3 % (40-80); PLATELET COUNT 303 10x3/uL (130-400); RBC 3.62 10x6/uL (4.20-6.10); RDW 20.1 % (11.5-14.5); WBC 9.3 10x3/uL (4.8-10.8)
[2020-04-09 06:07] LABS: CALC OSMOLALITY 284 mosm/kg (275-300); CALCIUM 8.6 mg/dL (8.5-10.1); CARBON DIOXIDE 39.2 mmol/L (21.0-32.0); CHLORIDE - SERUM 101 mmol/L (98-107); GLUCOSE 100 mg/dL (74-106); POTASSIUM - SERUM 4.1 mmol/L (3.5-5.1); SODIUM 143 mmol/L (136-145); UREA NITROGEN 12 mg/dL (7-18)
[2020-04-09 06:11] LABS: CREATININE - SERUM 0.8 mg/dL (0.6-1.3); MCV 98.9 fL (80.0-100.0); eGFR NON AFRICAN AMERICAN > 90 mL/min (90-120)
[2020-04-09 09:35] VITALS: BP 100/59
--- NOTE | 2020-04-09 10:59 | NUR ---
Nutrition Follow-up: Pt reports appetite improving. States he ate >50% of breakfast this AM. Denies N/V/C/D, chewing/swallowing difficulties. Diet: Regular Wt: 136# (04/08); 133# (03/25 - stated) Last BM: 04/09 Labs reviewed Meds noted: Lasix, Pepcid, electrolyte -Encourage PO intake and honor food preferences. -Monitor wt; noted daily wts ordered. -RD following.
--- NOTE | 2020-04-09 11:25 | NUR ---
I have reviewed this patient and I concur with the Shift Assessment completed by the Licensed Practical Nurse today this shift.
[2020-04-09 13:47] VITALS: BP 95/51
--- NOTE | 2020-04-09 13:50 | NUR ---
ANIYA FROM [facility] CAME TO PT'S ROOM AND SET UP TRILOGY MACHINE. TEACHING DONE WITH THIS NURSE AND PT. ANIYA STATES PT WILL NEED A BIGGER O2 TANK THEN WHAT PT HAS NOW. NOTIFIED DRY HOUSE OPERATOR AND SHE SPOKE WITH SHANIQUA ABOUT WHAT PT NEEDS FOR HOME DISCHARGE. RESPIRATORY THERAPIST CAME IN PT'S ROOM AND STATES BIPAP WILL STAY IN PT'S ROOM UNTIL WE KNOW PT CAN TOLERATE THE TRILOGY MACHINE WELL THEN THEY CAN TAKE IT OUT OF ROOM. I VERBALIZED UNDERSTANDING. CUT SOME OF MEPILEX AND PLACED OVER PT'S NOSE FOR CUSHION. TOP OF PT'S NOSE IS RED AND STARTING TO GET AN INDETATION.
--- NOTE | 2020-04-09 14:45 | MORECARE ---
CASE MANAGEMENT DISCHARGE SUMMARY PATIENT: CHYNA HICKEY UNIT: [id number] ADM DATE: 03/25/20 AGE: 74 : 44 SEX: M ROOM/BED: D.2106 AUTHOR: OSVALDO,DOC PHYSICIAN: REFERRING PHYSICIAN: JUAN CARLOS ROMERO MD DATE OF SERVICE: 04/09/20 Discharge Plan Patient Name: CHYNA HICKEY Facility: [facility]:[place] : 1945 Planned Disposition: Home or Self Care Anticipated Discharge Date: Discharge Date: Expected LOS: Initial Reviewer: [email or web address] Initial Review Date: 03/25/2020 Generated: 04/09/20 3:45 pm Comments DCP- Discharge Planning Updated by [email or web address]: Saundra Noriega on 04/09/20 1:[address] Isabella, respiratory therapist with [facility], here and setting up patient's Trilogy. Patient does not have a home concentrator and will need an order with the liter amount prior to discharge. He does have portable tanks, but may need a larger tank at DC for home use. CM will continue to follow and assist with discharge planning/needs. DCP- Discharge Planning Updated by [email or web address]: Saundra Noriega on 04/08/20 1:[address] CM met with patient to discuss BIPAP/trilogy order from Dr. Emmanuel. Patient would like me to use [facility]. He states he gets his oxygen from [facility]. I called [facility] and clinical faxed. CM will continue to follow and assist with discharge planning/needs. DCP- Discharge Planning Updated by [id number]: Kathleen Miramontes on 03/31/20 12:[address] CM met with patient regarding DC needs/plans. Patient is A/O, lives in his home independently and states that his brother, González Gallegos, lives with him. PCP: Dr. Kelsea West. [facility]. DME: walker, O2, Portable O2 ([employer]) in patient's room. Patient gives permission to speak with his brother, if needed. Denies use of community resources. CM discussed HHS, Rehab, SNF, but patient states he does not require any of those services at this time. patient states he can safely return to his previous environment. Denies being hospitalized within the past 30 days. Transportation will be provided by his brother at time of DC. DCPIA - Discharge Planning Initial Assessment Updated by [email or web address]: Kathleen Miramontes on 03/31/20 12:55 pm * Is the patient Alert and Oriented? Yes * How many steps to enter\exit or inside your home? 5 w/rails * PCP Dr. Kelsea West * [facility] * Preadmission Environment Home with Family * ADLs Independent * Equipment Oxygen Rolling Walker * Other Equipment Portable O2 from [employer] * List name and contact numbers for known caregivers / representatives who currently or will assist patient after discharge: González Gallegos (brother) ?number. Jamie Robert (nephew) [phone] * Verbal permission to speak to the caregivers and representatives has been obtained from the patient. Yes * Community resources currently utilized None * Additional services required to return to the preadmission environment? No * Can the patient safely return to the preadmission environment? Yes * Has this patient been hospitalized within the prior 30 days at any hospital? No Coverage Notice Reviewer: [email or web address] Iris Noriega Notice Issued Date-Time: 04/08/2020 12:50 Notice Type: Patient Choice Letter Notice Delivered To: Patient Relationship to Patient: Self Certified Prosthetist/Orthotist Name: Delivery Method: HAND - Hand Delivered Viki Days: Prior Verbal Notification: Recipient Understood Notice: Yes Recipient Signature: Yes Med Rec Note Co-signed by Attending: Coverage Notice Comment: myra for [employer] Last DP export: 04/08/20 1:14 p Patient Name: CHYNA HICKEY Page [id number] at 1445 All edits/amendments must be made on the electronic document DICTATION DATE: 04/09/20 1445 SECRETARY BOOK KEEPER: JEREMIE 04/09/20 1445 RPT#: [id number] [place] DATE: STATUS: ADM IN [facility] [address] [place] [address] END OF REPORT
--- NOTE | 2020-04-09 14:52 | MORECARE ---
CASE MANAGEMENT DISCHARGE SUMMARY PATIENT: CHYNA HICKEY UNIT: [id number] ADM DATE: 03/25/20 AGE: 74 : 44 SEX: M ROOM/BED: D.2106 AUTHOR: OSVALDO,DOC PHYSICIAN: REFERRING PHYSICIAN: JUAN CARLOS ROMERO MD DATE OF SERVICE: 04/09/20 Discharge Plan Patient Name: CHYNA HICKEY Facility: [facility]:[place] : 1945 Planned Disposition: Home or Self Care Anticipated Discharge Date: Discharge Date: Expected LOS: Initial Reviewer: [email or web address] Initial Review Date: 03/25/2020 Generated: 04/09/20 3:52 pm Comments DCP- Discharge Planning Updated by [id number]: Saundra Noriega on 04/09/20 1:[address] Isabella, respiratory therapist with [facility], here and setting up patient's Trilogy. Patient does not have a home concentrator and will need an order with the liter amount prior to discharge. He does have portable tanks, but may need a larger tank at DC for home use. CM will continue to follow and assist with discharge planning/needs. DCP- Discharge Planning Updated by [email or web address]: Saundra Noriega on 04/08/20 1:[address] CM met with patient to discuss BIPAP/trilogy order from Dr. Emmanuel. Patient would like me to use [facility]. He states he gets his oxygen from [facility]. I called [facility] and clinical faxed. CM will continue to follow and assist with discharge planning/needs. DCP- Discharge Planning Updated by [id number]: Kathleen Miramontes on 03/31/20 12:[address] CM met with patient regarding DC needs/plans. Patient is A/O, lives in his home independently and states that his brother, González Gallegos, lives with him. PCP: Dr. Kelsea West. [facility]. DME: walker, O2, Portable O2 ([employer]) in patient's room. Patient gives permission to speak with his brother, if needed. Denies use of community resources. CM discussed HHS, Rehab, SNF, but patient states he does not require any of those services at this time. patient states he can safely return to his previous environment. Denies being hospitalized within the past 30 days. Transportation will be provided by his brother at time of DC. DCPIA - Discharge Planning Initial Assessment Updated by [id number]: Kathleen Miramontes on 03/31/20 12:55 pm * Is the patient Alert and Oriented? Yes * How many steps to enter\exit or inside your home? 5 w/rails * PCP Dr. Kelsea West * [facility] * Preadmission Environment Home with Family * ADLs Independent * Equipment Oxygen Rolling Walker * Other Equipment Portable O2 from [employer] * List name and contact numbers for known caregivers / representatives who currently or will assist patient after discharge: González Gallegos (brother) ?number. Jamie Robert (nephew) [phone] * Verbal permission to speak to the caregivers and representatives has been obtained from the patient. Yes * Community resources currently utilized None * Additional services required to return to the preadmission environment? No * Can the patient safely return to the preadmission environment? Yes * Has this patient been hospitalized within the prior 30 days at any hospital? No Coverage Notice Reviewer: [email or web address] Iris Noriega Notice Issued Date-Time: 04/08/2020 12:50 Notice Type: Patient Choice Letter Notice Delivered To: Patient Relationship to Patient: Self Vacuum Drum Drier Operator Name: Delivery Method: HAND - Hand Delivered Viki Days: Prior Verbal Notification: Recipient Understood Notice: Yes Recipient Signature: Yes Med Rec Note Co-signed by Attending: Coverage Notice Comment: myra for [employer] Last DP export: 04/08/20 1:14 p Patient Name: CHYNA HICKEY Page [id number] at 1452 All edits/amendments must be made on the electronic document DICTATION DATE: 04/09/20 145 INSPECTOR EXHAUST EMISSIONS: JEREMIE 04/09/20 1452 RPT#: [id number] [place] DATE: STATUS: ADM IN [facility] [address] [place] [address] END OF REPORT
--- NOTE | 2020-04-09 15:55 | NUR ---
PT SLEEPING AT THIS TIME. WILL COME BACK AND GIVE MEDS.
--- NOTE | 2020-04-09 17:29 | NUR ---
PT TAKEN OFF TRILOGY AND PLACED NOEMI FLOW O2. DR. HERNANDEZ WANTS PT TO WEAR O2 AND START WEANING HIM DOWN. PT WEANED FROM 15L HIGH FLOW TO 4L HIGH FLOW AND O2 SAT IS AT 92%-93%. WILL CONTINUE TO MONITOR. PT TO WEAR TRILOGY AGAIN TO NIGHT AT BEDTIME.
--- NOTE | 2020-04-09 17:59 | NUR ---
PT O2 SAT 70-83% ON 4L HIGH FLOW NC. TURNED PT TO 8L HIGH FLOW NC AND O2 SAT 98-99%. WILL CONTINUE TO MONITOR.
[2020-04-09 18:26] VITALS: BP 111/61
--- NOTE | 2020-04-09 18:35 | NUR ---
O2 SAT 97% ON 8L HIGH FLOWNC. TURNED PT TO 7L HIGH FLOW NC AND O2 SAT 95%. WILL CONTINUE TO WEAN DOWN AND MONITOR. PT WANTING TO BE PLACED ON TRILOGY MACHINE. PLACED PT ON TRILOGY.
--- NOTE | 2020-04-09 19:40 | NUR ---
PT LYING IN BED AWAKE ALERT AND ORIENTED. PT HAS TRILOGY ON. NO SIGNS OF DISTRESS NOTED. RESPIRATIONS EVEN AND UNLABORED. PT HAS NO COMPLAINTS AT THIS TIME. CALL LIGHT WITH IN REACH. WILL CONTINUE TO MONITOR
[2020-04-09 20:00] VITALS: BP 97/56
--- NOTE | 2020-04-09 23:49 | NUR ---
PT RESTING QUIETLY WITH TRILOGY ON. EASILY AWAKEN WITH VOICE STIMULATION. NO COMPLAINTS AT THIS TIME. CALL LIGHT, URINAL AND OTHER PERSONAL ITEMS WITH IN REACH. SIDERAILS x2. WILL CONTINUE TO MONITOR
[2020-04-10] VITALS: BP 100/59
[2020-04-10 04:00] VITALS: BP 122/72
[2020-04-10 06:27] LABS: BASOPHILS 0.4 % (0-2); HEMATOCRIT 31.5 % (42.0-54.0); HEMOGLOBIN 9.3 g/dL (13.5-17.5); IMMATURE GRANULOCYTES 0.1 % (0-5); LYMPHOCYTES 17.1 % (15-50); MCH 29.1 pg (26.0-34.0); MCHC 29.5 g/dL (31.0-37.0); MCV 98.4 fL (80.0-100.0); MEAN PLATELET VOLUME 9.1 fL (7.4-10.4); MONOCYTES 11.8 % (2-11); NEUTROPHILS 69.6 % (40-80); PLATELET COUNT 289 10x3/uL (130-400); RDW 19.7 % (11.5-14.5)
[2020-04-10 06:30] LABS: ANION GAP 4.6 mmol/L (8-16); CALCIUM 8.5 mg/dL (8.5-10.1); MAGNESIUM - SERUM 1.7 mg/dL (1.8-2.4); POTASSIUM - SERUM 3.9 mmol/L (3.5-5.1)
[2020-04-10 06:31] LABS: CREATININE - SERUM 1.1 mg/dL (0.6-1.3); WBC 6.7 10x3/uL (4.8-10.8)
[2020-04-10 06:33] LABS: CARBON DIOXIDE 43.3 mmol/L (21.0-32.0)
--- NOTE | 2020-04-10 06:48 | NUR ---
CRITICAL CO2 LUTE PACKER OR APPLIER CHANDU CASHD. WILL CONTINUE TO MONITOR
--- NOTE | 2020-04-10 06:50 | NUR ---
CHANDU MARTINEZ NOTIFIED NO NEW ORDERS WILL CONTIUE TO MONITOR
[2020-04-10 08:55] VITALS: BP 106/68
--- NOTE | 2020-04-10 12:20 | NUR ---
PT WEARING TRILOGY AND O2 ON 10L. MAINTENANCE ADVISOR GETTING VS AND CALLED ME IN ROOM BECAUSE O2 SAT 70-73%. TURNED O2 TO 15L. O2 SAT AT 76%. TOOK OFF TRILOGY AND PLACED O2 15L HIGH FLOW NC ON PT. O2 SAT 80%-83%. PT GRADUALLY CAME UP TO 90-91%. PAGED DR. HERNANDEZ. MARANDA Cardona IN ROOM AT THIS TIME AND WENT AND SPOKE WTIH DR. HERNANDEZ. MARANDA Cardona CAME BACK AND HE STATES DR. HERNANDEZ TOLD HIM TO GET ABG'S. ABG'S DRAWN AND HE WENT AND SHOWED RESULTS TO DR. HERNANDEZ. DR. HERNANDEZ STATED TO HIM TO PLACE PT ON TRILOGY AND TO LEAVE HIM ON. MARANDA Cardona PLACED PT ON TRILOGY WITH O2 ALL THE WAY TURNED UP. O2 SAT NOW AT 100%. DR. HERNANDEZ ORDERED A CTA OF THE CHEST. PT IS ASYMPTOMATIC TO HYPOXEMIA. WILL CONTINUE TO MONITOR. EXPLAINED TO PT AND PT VERBALIZED UNDERSTANDING. BED LOW. CL IN REACH.
[2020-04-10 12:41] VITALS: BP 95/59
--- NOTE | 2020-04-10 14:27 | NUR ---
I have reviewed this patient and I concur with the Shift Assessment completed by the Licensed Practical Nurse today this shift.
[2020-04-10 16:34] VITALS: BP 108/62
--- NOTE | 2020-04-10 16:55 | NUR ---
PT PLACED ON NONREBREATHER AND TAKEN TO CT VIA BED.
--- NOTE | 2020-04-10 19:28 | NUR ---
PT AWAKE WITH RESP TECH GIVING TREATMENTS DENIES NEEDS AT THIS TIME BED IS LOW AND LOCKED AND CALL LIGHT IS WITH PT
[2020-04-10 20:00] VITALS: BP 111/62
--- NOTE | 2020-04-10 23:07 | NUR ---
SPO2 33% REMOVED CPAP AND APPLIED O2 UP TO 77%
[2020-04-11] VITALS: BP 84/43
[2020-04-11 04:00] VITALS: BP 91/45
[2020-04-11 06:18] LABS: BASOPHILS 0.4 % (0-2); EOSINOPHILS 0.7 % (0-7); HEMATOCRIT 31.7 % (42.0-54.0); HEMOGLOBIN 9.5 g/dL (13.5-17.5); IMMATURE GRANULOCYTES 0.1 % (0-5); LYMPHOCYTES 16.1 % (15-50); MCH 28.9 pg (26.0-34.0); MEAN PLATELET VOLUME 9.6 fL (7.4-10.4); MONOCYTES 14.4 % (2-11); NEUTROPHILS 68.3 % (40-80); PLATELET COUNT 289 10x3/uL (130-400); RBC 3.29 10x6/uL (4.20-6.10); RDW 19.6 % (11.5-14.5); WBC 7.6 10x3/uL (4.8-10.8)
[2020-04-11 06:20] LABS: MCV 96.4 fL (80.0-100.0)
[2020-04-11 06:30] LABS: ANION GAP 2.9 mmol/L (8-16); CALCIUM 8.2 mg/dL (8.5-10.1); CARBON DIOXIDE 39.7 mmol/L (21.0-32.0); POTASSIUM - SERUM 3.6 mmol/L (3.5-5.1)
[2020-04-11 06:32] LABS: CREATININE - SERUM 1.4 mg/dL (0.6-1.3); MAGNESIUM - SERUM 2.5 mg/dL (1.8-2.4)
[2020-04-11 08:24] VITALS: BP 139/64
[2020-04-11 12:34] VITALS: BP 97/57
--- NOTE | 2020-04-11 12:36 | NUR ---
Nutrition Follow-up: Ate 100% of breakfast this AM. Diet: Regular PO intake: 64% avg x 9 meals No new wt; last wt: 136# (04/08) Labs noted: Glu 111, Ca 8.2, Mg 2.5 Meds noted: Lasix, Pepcid, electrolyte protocol -Encourage PO intake and honor food preferences. -Need new wt; noted daily wts ordered. -RD following.
[2020-04-11 16:22] VITALS: BP 100/95
[2020-04-11 20:30] VITALS: BP 102/56
[2020-04-12] VITALS (14 sets, daily range): BP systolic 88–132; BP diastolic 42–74
[2020-04-12 04:58] LABS: BASOPHILS 0.3 % (0-2); EOSINOPHILS 0.4 % (0-7); HEMATOCRIT 36.9 % (42.0-54.0); IMMATURE GRANULOCYTES 0.2 % (0-5); LYMPHOCYTES 15.1 % (15-50); MCH 29.1 pg (26.0-34.0); MCHC 29.8 g/dL (31.0-37.0); MCV 97.6 fL (80.0-100.0); MEAN PLATELET VOLUME 9.8 fL (7.4-10.4); MONOCYTES 14.1 % (2-11); NEUTROPHILS 69.9 % (40-80); PLATELET COUNT 314 10x3/uL (130-400); RBC 3.78 10x6/uL (4.20-6.10)
[2020-04-12 05:02] LABS: WBC 10.1 10x3/uL (4.8-10.8)
[2020-04-12 05:26] LABS: ANION GAP 6.4 mmol/L (8-16); CALCIUM 8.9 mg/dL (8.5-10.1); CREATININE - SERUM 1.6 mg/dL (0.6-1.3); MAGNESIUM - SERUM 2.3 mg/dL (1.8-2.4); POTASSIUM - SERUM 3.4 mmol/L (3.5-5.1); VANCOMYCIN - RANDOM 23.5 ug/mL (10.0-20.0)
--- NOTE | 2020-04-12 06:35 | NUR ---
PT NOW ON VAPOTHERM AT 90%. PT CONTINUES TO HAVE DIFFICULTY BREATHING BUT NO OTHER DISTRESS OBSERVED. CALL LIGHT IN REACH. WILL CTM
--- NOTE | 2020-04-12 06:39 | NUR ---
[employer] REPORTED THAT PT HAS NOW BECOME EVEN MORE AGGRESSIVE HITTING HIS FISTS TOGETHER AND HITTING HIMSELF IN THE HEAD. PT JUST KEEPS STATING THAT HE "HAS TO GO" UNABLE TO REDIRECT. WILL CTM.
--- NOTE | 2020-04-12 14:18 | NUR ---
DR HERNANDEZ REQUESTS FOR PT TO BE TRANSFERED TO ICU. ROOM RECIEVED. [id number]
--- NOTE | 2020-04-12 14:55 | NUR ---
ARRIVED TO ROOM AT THIS TIME VIA BED ACCOMPANIED BY HOSPITAL STAFF. PT ALERT, FOLLOWS COMMANDS. HEART RATE 71 AFLUTTER. BLOOD PRESSURE 128/72, TEMP 97.2. PT ABLE TO INDICATE AND WRITE NEEDS. VSS. CURRENTLY ON TRILOGY 15L. WILL CONTINUE TO OBSERVE.
--- NOTE | 2020-04-12 17:27 | NUR ---
LYING IN BED AWAKE AT THIS TIME. DENIES ANY NEEDS. NODDED HEAD WHEN ASKED IF HE WAS OKAY AND SHOOK HEAD WHEN ASKED IF HE NEEDED ANYTHING. VSS. NO ACUTE DISTRESS NOTED. WILL CONTINUE PLAN OF CARE.
--- NOTE | 2020-04-12 19:00 | NUR ---
ASSESSMENT COMPLETED. PT ON HOME TRIOLOGY AT 15L. DENIES ANY NEEDS. CALL LIGHT IN REACH.
--- NOTE | 2020-04-12 21:00 | NUR ---
REPOSITIONED. TEETH IN CONTAINER. DENIES ANY NEEDS.
--- NOTE | 2020-04-12 23:00 | NUR ---
RE-ASSESSMENT COMPLETED. NO CHANGES SINCE LAST ASSESSMENT
[2020-04-13] VITALS (24 sets, daily range): BP systolic 91–128; BP diastolic 50–79
--- NOTE | 2020-04-13 03:00 | NUR ---
RE-ASSESSMENT COMPLETED. PT STARTED DESAT TO 80'S% AND UNABLE TO GET UP. SWITCHED FROM HOME TRIOLOGY TO BIPAP AT 100% PER ORDERS. PULSE OX UP TO 100%.
[2020-04-13 04:17] LABS: BASOPHILS 0 % (0-2); EOSINOPHILS 0 % (0-7); HEMATOCRIT 37.3 % (42.0-54.0); IMMATURE GRANULOCYTES 0.2 % (0-5); LYMPHOCYTES 7.5 % (15-50); MCH 28.9 pg (26.0-34.0); MCHC 29.5 g/dL (31.0-37.0); MCV 97.9 fL (80.0-100.0); MEAN PLATELET VOLUME 9.8 fL (7.4-10.4); MONOCYTES 0.6 % (2-11); NEUTROPHILS 91.7 % (40-80); PLATELET COUNT 296 10x3/uL (130-400); RBC 3.81 10x6/uL (4.20-6.10); RDW 19.6 % (11.5-14.5)
[2020-04-13 04:21] LABS: WBC 4.9 10x3/uL (4.8-10.8)
[2020-04-13 04:31] LABS: ALBUMIN 2.6 g/dL (3.4-5.0); ANION GAP 8.1 mmol/L (8-16); BILIRUBIN - TOTAL 0.65 mg/dL (0.2-1.3); CALCIUM 9.1 mg/dL (8.5-10.1); CARBON DIOXIDE 39.9 mmol/L (21.0-32.0); CREATININE - SERUM 1.7 mg/dL (0.6-1.3); MAGNESIUM - SERUM 2.3 mg/dL (1.8-2.4); PHOSPHOROUS 3.8 mg/dL (2.5-4.9); PROTEIN - SERUM 6.8 g/dL (6.4-8.2); VANCOMYCIN - RANDOM 15.5 ug/mL (10.0-20.0)
--- NOTE | 2020-04-13 05:00 | NUR ---
REPOSITIONED. VSS. DENIES ANY NEEDS
--- NOTE | 2020-04-13 08:00 | NUR ---
100ML CONTINENT VOID TO URINAL, PT PROVIDED OWN TERRANCE CARE. VSS. NO ACUTE DISTRESS NOTED.
--- NOTE | 2020-04-13 10:01 | NUR ---
PT UP IN BED ON BIPAP AT THIS TIME. VSS. NO ACUTE DISTRESS NOTED. CALL LIGHT IN REACH. PT ASSISTED WITH REPOSITIOING AND ORAL CARE Q2H. WILL CONTINUE PLAN OF CARE.
--- NOTE | 2020-04-13 12:02 | NUR ---
100ML VOID NOTED AT THIS TIME TO URINAL. PT PROVIDED OWN TERRANCE CARE.
--- NOTE | 2020-04-13 13:02 | NUR ---
PT HAD BREAK FROM BIPAP FOR 1 HOUR PER ORDERS FOR LUNCH. AT THE END OF THE HOUR NOTED PT BEGAN TO DESAT ON VAPOTHERM (40 LPM 100%) TO 86%, WHEN BIPAP PLACED TO PT (80% FIO2) OXYGEN SATURATION INCREASED TO 97%. WILL CONTINUE PLAN OF CARE.
--- NOTE | 2020-04-13 14:07 | NUR ---
NOTED PT HAS HAD 200 ML URINE OUTPUT SO FAR THIS SHIFT, WELL [address] SILVEIRA, START NS AT 75ML/HR.
--- NOTE | 2020-04-13 15:11 | NUR ---
PT SITTING UP IN BED STATING HE FELT LIKE HE WAS HAVING DIFFICULTY BREATHING. OXYGEN SATURATION TRENDING 88%-91% ON 80% BIPAP. BIPAP FIO2 INCREASED TO 95% OXYGEN SATURATION NOW 95%, PT STATES HE IS STARTING TO FEEL BETTER. WILL CONTINUE TO CLOSELY OBSERVE.
--- NOTE | 2020-04-13 16:53 | NUR ---
CHG BATH OFFERED TO PT, HE REFUSED BATH STATING HE DIDN'T WANT A BATH RIGHT NOW. LINEN CHANGE PROVIDED. VSS. WILL CONTINUE PLAN OF CARE.
--- NOTE | 2020-04-13 18:25 | NUR ---
LYING IN BED ON BIPAP WATCHING TV AT THIS TIME. VSS. NO ACUTE DISTRESS NOTED. CALL LIGHT AND PERSONAL ITEMS IN REACH. WILL CONTINUE PLAN OF CARE.
--- NOTE | 2020-04-13 20:20 | NUR ---
RECIVED REPORT AT THIS TIME. PT IS SITTING UP IN BED WATCHING TV. HE IS A&OX4, HE IS VERY SOFTLY SPOKEN. WILL DO FULL ASSESSMENT AND DOCUMENT IN FLOW SHEET. BED IS LOW,SIDE RAISLX2,CALL LIGHT WITHIN REACH. WILL CONINTUE TO MONITOR
--- NOTE | 2020-04-13 21:49 | NUR ---
PT IS RESTING IN BED WATCHING TV. HIS VSS. HE IS ON VAPOTHERM 100%. ADMINISTERING PO SCHEDULED MEDS ORDERED. SCANNED ON JAN. PT VOICES "NO" TO PAIN. HE ASKED IF HE COULD HAVE HIS BIPAP BACK ON BECAUSE HE WANTS TO GO TO SLEEP. PUT BIPAP BACK ON SECURLY. PT VSS. HE LAYED DOWN ONTO RIGHT SIDE. BED IS LOW,SIDE RAILSX2,CALL LIGHT WITHIN REACH. WILL CONINTUE TO MONITOR
--- NOTE | 2020-04-13 23:20 | NUR ---
PT IS RESTING IN BED WITH EYES CLOSED. VSS. RE-ASSESSMENT DONE AND WILL DOC IN FLOWSHEET. BED IS LOW,SIDE RAISLX2,CALL LIGHT WITHIN REACH. WILL CONINTUE TO MONITOR
[2020-04-14] VITALS (22 sets, daily range): BP systolic 84–134; BP diastolic 51–99
--- NOTE | 2020-04-14 02:00 | NUR ---
PT IS RESTING IN BED ON LEFT SIDE. VSS. BED IS LOW,SIDE RAISLX2,CALL LIGHT WITHIN ERACH. WILL CONTINUE TO MONITOR
[2020-04-14 03:51] LABS: BASOPHILS 0 % (0-2); EOSINOPHILS 0 % (0-7); HEMATOCRIT 35.3 % (42.0-54.0); HEMOGLOBIN 10.4 g/dL (13.5-17.5); IMMATURE GRANULOCYTES 0.4 % (0-5); LYMPHOCYTES 4.1 % (15-50); MCH 28.9 pg (26.0-34.0); MCHC 29.5 g/dL (31.0-37.0); MCV 98.1 fL (80.0-100.0); MEAN PLATELET VOLUME 9.9 fL (7.4-10.4); MONOCYTES 2.8 % (2-11); NEUTROPHILS 92.7 % (40-80); PLATELET COUNT 316 10x3/uL (130-400); RDW 19.5 % (11.5-14.5)
[2020-04-14 03:57] LABS: WBC 10.5 10x3/uL (4.8-10.8)
[2020-04-14 04:05] LABS: ANION GAP 3.9 mmol/L (8-16); CALCIUM 9.2 mg/dL (8.5-10.1); CARBON DIOXIDE 39.1 mmol/L (21.0-32.0); CREATININE - SERUM 1.5 mg/dL (0.6-1.3); MAGNESIUM - SERUM 2.3 mg/dL (1.8-2.4); VANCOMYCIN - RANDOM 18.2 ug/mL (10.0-20.0)
--- NOTE | 2020-04-14 04:06 | NUR ---
PT IS RESTING IN BED WITH EYES CLOSED. VSS. BED IS LOW,SIDE RAILSX2,CALL LIGHT WITHIN REACH. WILL CONTINUE TO MONITOR
--- NOTE | 2020-04-14 06:13 | NUR ---
PT IS RESTING IN BED WITH EYES CLOSED. VSS. AWAKES WHEN CALLED OUT NAME. NEURO ASSESSMENT IS SAME. BED IS LOW,SIDE RAILSX2,CALL LIGHT WTIHIN REACH. WILL CONITNUE TO MONITOR
--- NOTE | 2020-04-14 08:00 | NUR ---
RESTING WITH NO SIGNS OF DISTRESS, NO ACUTE CHANGE FROM PREVIOUS, WILL CONTINUE WITH POC
--- NOTE | 2020-04-14 09:00 | NUR ---
MORNING MEDICATION GIVEN PER MAR FLOWSHEET, TOLERATED WITHOUT DIFFICULTY
--- NOTE | 2020-04-14 10:39 | NUR ---
Nutrition follow-up: Diet: regular PO intake 25-50% of meals Pt now in ICU 2/2 breathing issues; BIPAP in use Wt: 137# Last BM charted 04/09 RDN following.
--- NOTE | 2020-04-14 11:00 | NUR ---
RESTING SITTING UP WATCHING IN BED, WITH NO SIGNS OF DISTRESS, CONTINUES ON VAPOTHERM AT 100% FIO2, 40 L, ON ACUTE CHANGE FROM PREVIOUS ASSESSMENT
--- NOTE | 2020-04-14 12:15 | NUR ---
LUNCH TRAY TO BEDSIDE, INDEPENDENT WITH SET UP AND EATING
--- NOTE | 2020-04-14 17:00 | NUR ---
RESTING WITH NO SIGN OF DISTRESS, VSS, CONTINUES ON VAPOTEHRM AT 100%, DENIES ANY NEEDS, WILL CONTINUE WITH POC
--- NOTE | 2020-04-14 17:43 | MORECARE ---
CASE MANAGEMENT DISCHARGE SUMMARY PATIENT: CHYNA HICKEY UNIT: [id number] ADM DATE: 03/25/20 AGE: 74 : 43 SEX: M ROOM/BED: D.2307 AUTHOR: OSVALDO,DOC PHYSICIAN: REFERRING PHYSICIAN: JUAN CARLOS ROMERO MD DATE OF SERVICE: 04/14/20 Discharge Plan Patient Name: CHYNA HICKEY Facility: [facility]:[place] : 1945 Planned Disposition: Home or Self Care Anticipated Discharge Date: Discharge Date: Expected LOS: Initial Reviewer: [email or web address] Initial Review Date: 03/25/2020 Generated: 04/14/20 6:42 pm Comments DCP- Discharge Planning Updated by [id number]: Angelina Cho on 04/14/20 4:[address] CM spoke with patient regarding LTACH placement. CM explained what LTACH was and gave a list of facilities in the [facility]. Patient is still unsure as to what LTACH is an stated that if he had to go anywhere he wanted to go to [facility]. CM explained that [facility] was a [facility] facility. CM left list with LTACH with patient and CM will come back tomorrow and check on his decision after he speaks with physician. Patient doesn't understand the high amount of 02 that he is on. CM will continue to follow and assist as needed with discharge planning / needs. DCP- Discharge Planning Updated by [id number]: Saundra Noriega on 04/09/20 1:[address] Isabella, respiratory therapist with [facility], here and setting up patient's Trilogy. Patient does not have a home concentrator and will need an order with the liter amount prior to discharge. He does have portable tanks, but may need a larger tank at [place] for home use. CM will continue to follow and assist with discharge planning/needs. DCP- Discharge Planning Updated by [id number]: Saundra Noriega on 04/08/20 1:[address] LIZZY met with patient to discuss BIPAP/trilogy order from Dr. Emmanuel. Patient would like me to use [facility]. He states he gets his oxygen from [facility]. I called Arlin and Fred and clinical faxed. CM will continue to follow and assist with discharge planning/needs. DCP- Discharge Planning Updated by [id number]: Kathleen Miramontes on 03/31/20 12:[address] CM met with patient regarding DC needs/plans. Patient is A/O, lives in his home independently and states that his brother, González Gallegos, lives with him. PCP: Dr. Kelsea West. Pharmacy: [facility] DME: walker, O2, Portable O2 ([employer]) in patient's room. Patient gives permission to speak with his brother, if needed. Denies use of community resources. CM discussed HHS, Rehab, SNF, but patient states he does not require any of those services at this time. patient states he can safely return to his previous environment. Denies being hospitalized within the past 30 days. Transportation will be provided by his brother at time of DC. DCPIA - Discharge Planning Initial Assessment Updated by [id number]: Kathleen Garcialroy on 03/31/20 12:55 pm * Is the patient Alert and Oriented? Yes * How many steps to enter\exit or inside your home? 5 w/rails * PCP Dr. Kelsea West * Pharmacy [facility] * Preadmission Environment Home with Family * ADLs Independent * Equipment Oxygen Rolling Walker * Other Equipment Portable O2 from [employer] * List name and contact numbers for known caregivers / representatives who currently or will assist patient after discharge: González Gallegos (brother) ?number. Jamie Robert (nephew) [phone] * Verbal permission to speak to the caregivers and representatives has been obtained from the patient. Yes * Community resources currently utilized None * Additional services required to return to the preadmission environment? No * Can the patient safely return to the preadmission environment? Yes * Has this patient been hospitalized within the prior 30 days at any hospital? No Coverage Notice Reviewer: [email or web address] Iris Noriega Notice Issued Date-Time: 04/08/2020 12:50 Notice Type: Patient Choice Letter Notice Delivered To: Patient Relationship to Patient: Self Dethistler Operator Name: Delivery Method: HAND - Hand Delivered Viki Days: Prior Verbal Notification: Recipient Understood Notice: Yes Recipient Signature: Yes Med Rec Note Co-signed by Attending: Coverage Notice Comment: myra for [facility] Last DP export: 04/09/20 1:52 p Patient Name: CHYNA HICKEY Page [id number] at 1743 All edits/amendments must be made on the electronic document DICTATION DATE: 04/14/201741 GENERAL MAINTENANCE TECHNICIAN: JEREMIE 04/14/201741 RPT#: [id number] DC DATE: STATUS: ADM IN [facility] [address] [place] [address] END OF REPORT
--- NOTE | 2020-04-14 19:00 | NUR ---
REPORT RECEIVED. PT RESTING IN BED, AAOX4. BIPAP ON AT THIS TIME. PIV IN RIGHT FOREARM INFUSING, SEE IV FLOWSHEET. WILL CONTINUE TO MONITOR.
--- NOTE | 2020-04-14 21:00 | NUR ---
PT RESTING IN BED, NO ACUTE DISTRESS NOTED.
--- NOTE | 2020-04-14 23:00 | NUR ---
REASSESSMENT COMPLETED, SEE FLOWSHEET.
[2020-04-15] VITALS (23 sets, daily range): BP systolic 92–138; BP diastolic 53–101
--- NOTE | 2020-04-15 01:00 | NUR ---
PT RESTING IN BED, NO ACUTE DISTRESS NOTED.
--- NOTE | 2020-04-15 03:00 | NUR ---
REASSESSMENT COMPLETED, SEE FLOWSHEET.
[2020-04-15 04:28] LABS: BASOPHILS 0 % (0-2); EOSINOPHILS 0 % (0-7); HEMATOCRIT 32.8 % (42.0-54.0); HEMOGLOBIN 9.5 g/dL (13.5-17.5); IMMATURE GRANULOCYTES 0.2 % (0-5); LYMPHOCYTES 2.2 % (15-50); MCH 28.5 pg (26.0-34.0); MCV 98.5 fL (80.0-100.0); MEAN PLATELET VOLUME 10.3 fL (7.4-10.4); MONOCYTES 2.4 % (2-11); NEUTROPHILS 95.2 % (40-80); PLATELET COUNT 312 10x3/uL (130-400); RBC 3.33 10x6/uL (4.20-6.10); RDW 19.9 % (11.5-14.5); WBC 12.5 10x3/uL (4.8-10.8)
[2020-04-15 05:00] LABS: ANION GAP 5.7 mmol/L (8-16); CALCIUM 9.2 mg/dL (8.5-10.1); CARBON DIOXIDE 35.2 mmol/L (21.0-32.0); CREATININE - SERUM 1.5 mg/dL (0.6-1.3); MAGNESIUM - SERUM 2.3 mg/dL (1.8-2.4); POTASSIUM - SERUM 3.9 mmol/L (3.5-5.1); VANCOMYCIN - RANDOM 18.3 ug/mL (10.0-20.0)
--- NOTE | 2020-04-15 05:00 | NUR ---
PT RESTING IN BED, NO ACUTE DISTRESS NOTED.
[2020-04-16] VITALS (41 sets, daily range): BP systolic 70–162; BP diastolic 40–114
--- NOTE | 2020-04-16 01:30 | NUR ---
NO NEW CHANGES AT THIS TIME. PT RESTING WITH NO S/S OF DISTRESS. VSS. ROOM VISIBLE FROM NURSES STATION. CPOC.
--- NOTE | 2020-04-16 02:50 | NUR ---
DR. TAYLOR NOTIFIED OF PATIENT HAVING DIFFICULTY BREATHING AND SITTING UP IN TRIPOD POSITION. NEW ORDER RECEIVED FOR ATIVAN.
--- NOTE | 2020-04-16 04:10 | NUR ---
PATIENT SLEEPING AT THIS TIME. SPO2 INCREASED TO 97% AND RESPIRATION UNLABORED. CALL LIGHT WITHIN REACH, BED IN LOW POSITION, AND ALARM ON.
[2020-04-16 04:47] LABS: MAGNESIUM - SERUM 2.4 mg/dL (1.8-2.4); VANCOMYCIN - RANDOM 20.8 ug/mL (10.0-20.0)
--- NOTE | 2020-04-16 07:00 | NUR ---
REC'D REPORT AND RESUMED CARE, LETHARGIC, RESPONDS TO TACTILE STIMULI, SOES NOT FOLLOW COMMANDS, O2 SAT 90% ON 100 % FIO2 AND 40 L ON BIPAP, SHOWING A FLUTTER ON MONITOR, OTHER VSS, ASSESSMENT COMPLETE PER FLOWSHEET, REPOSITIONED UP AND TO BACK FOR COMFORT, CALL LIGHT IN REACH,
--- NOTE | 2020-04-16 07:49 | NUR ---
Nutrition follow-up: Pt receiving a regular diet. PO intake of some meals ~50%; pt on BIPAP most of the time. Labs reviewed Wt: 136# PO intake poor 2/2 breathing issues on BIPAP. Recommend nutrition support start. PEG tube vs NGT placement and TF started if medically feasible. RDN following.
--- NOTE | 2020-04-16 08:00 | NUR ---
O2 SAT 78, ORAL CARE AND SUCTION COMPLETED, RT TO BEDSIDE FOR EVAL, PC TO DR TAYLOR
--- NOTE | 2020-04-16 08:30 | NUR ---
DR TAYLOR IN UNIT, POST EVAL OF PATIENT, DECISION MADE TO INTUBATE AND BRONCHIAL LAVAGE, CONSENT GIVEN BY PATIENT FOR PROCEDURE
--- NOTE | 2020-04-16 09:30 | NUR ---
INTUBATED WITH AN 8.0 EET, AT THE [address]AYLOR, OGT PLACED AND PLACEMENT CHECKED BY AIR INSUFLATION, TOLERATED WITHOUT DIFFICULTY
--- NOTE | 2020-04-16 14:36 | NUR ---
THOMAS PLACED PER ORDER AND PROTOCAL
--- NOTE | 2020-04-16 17:25 | NUR ---
RESTING WITH NO SIGNS OF DISTRESS, SBP 139, LEVAPHED OFF, SAT 99% ON 80 % FIO2, NO OTHER ACUTE CHANGE FROM PREVIOUS
--- NOTE | 2020-04-16 19:30 | NUR ---
PT SEDATED AND INTUBATED, LUNG SOUNDS CRACKLES/DIMINISHED. FIO2 80, SPO2 100. FLUTTER ON MONITOR, PERIPHERAL PULSES PRESENT. BOWEL SOUNDS ACTIVE, ABD SOFT. THOMAS CATH INTACT, THOMAS CARE PROVIDED. VSS, NO S/S OF PAIN. ROOM VISIBLE FROM NURSES STATION. CPOC.
--- NOTE | 2020-04-16 20:18 | MORECARE ---
CASE MANAGEMENT DISCHARGE SUMMARY PATIENT: CHYNA HICKEY UNIT: [id number] ADM DATE: 03/25/20 AGE: 74 : 44 SEX: M ROOM/BED: D.2307 AUTHOR: OSVALDO,DOC PHYSICIAN: REFERRING PHYSICIAN: JUAN CARLOS ROMERO MD DATE OF SERVICE: 04/16/20 Discharge Plan Patient Name: CHYNA HICKEY Facility: [facility]:[place] : 1945 Planned Disposition: Home or Self Care Anticipated Discharge Date: Discharge Date: Expected LOS: Initial Reviewer: [email or web address] Initial Review Date: 03/25/2020 Generated: 04/16/20 9:17 pm Comments DCP- Discharge Planning Updated by [id number]: Angelina Cho on 04/16/20 7:[address] LATE ENTRY 04/15/20 CM attempted to call patient's nephew that is listed as a contact Jamie Robert [phone]. CM did not get an answer and no return call. CM will continue to follow and assist as needed with discharge planning / needs. DCP- Discharge Planning Updated by [id number]: Angelina Cho on 04/14/20 4:[address] CM spoke with patient regarding LTACH placement. CM explained what LTACH was and gave a list of facilities in the state. Patient is still unsure as to what LTACH is an stated that if he had to go anywhere he wanted to go to [facility]. CM explained that [facility] was a shelter facility. CM left list with LTACH with patient and CM will come back tomorrow and check on his decision after he speaks with physician. Patient doesn't understand the high amount of 02 that he is on. CM will continue to follow and assist as needed with discharge planning / needs. DCP- Discharge Planning Updated by [id number]: aSundra Noriega on 04/09/20 1:[address] Isabella, respiratory therapist with [facility] here and setting up patient's Trilogy. Patient does not have a home concentrator and will need an order with the liter amount prior to discharge. He does have portable tanks, but may need a larger tank at [place] for home use. CM will continue to follow and assist with discharge planning/needs. DCP- Discharge Planning Updated by [id number]: Saundra Noriega on 04/08/20 1:[address] CM met with patient to discuss BIPAP/trilogy order from Dr. Emmanuel. Patient would like me to use [facility]. He states he gets his oxygen from [facility]. I called Arlin and [facility] and clinical faxed. CM will continue to follow and assist with discharge planning/needs. DCP- Discharge Planning Updated by [id number]: Kathleen Miramontes on 03/31/20 12:[address] CM met with patient regarding DC needs/plans. Patient is A/O, lives in his home independently and states that his brother, González Gallegos, lives with him. PCP: Dr. Kelsea West. Pharmacy: [facility] DME: walker, O2, Portable O2 ([employer]) in patient's room. Patient gives permission to speak with his brother, if needed. Denies use of community resources. CM discussed HHS, Rehab, SNF, but patient states he does not require any of those services at this time. patient states he can safely return to his previous environment. Denies being hospitalized within the past 30 days. Transportation will be provided by his brother at time of DC. DCPIA - Discharge Planning Initial Assessment Updated by [id number]: Kathleen Miramontes on 03/31/20 12:55 pm * Is the patient Alert and Oriented? Yes * How many steps to enter\exit or inside your home? 5 w/rails * PCP Dr. Kelsea West * Pharmacy [facility] * Preadmission Environment Home with Family * ADLs Independent * Equipment Oxygen Rolling Walker * Other Equipment Portable O2 from [employer] * List name and contact numbers for known caregivers / representatives who currently or will assist patient after discharge: González Gallegos (brother) ?number. Jamie Robert (nephew) [phone] * Verbal permission to speak to the caregivers and representatives has been obtained from the patient. Yes * Community resources currently utilized None * Additional services required to return to the preadmission environment? No * Can the patient safely return to the preadmission environment? Yes * Has this patient been hospitalized within the prior 30 days at any hospital? No Coverage Notice Reviewer: [id number] - Saundra Noriega Notice Issued Date-Time: 04/08/2020 12:50 Notice Type: Patient Choice Letter Notice Delivered To: Patient Relationship to Patient: Self Lighting Fixture Installer Name: Delivery Method: HAND - Hand Delivered Viki Days: Prior Verbal Notification: Recipient Understood Notice: Yes Recipient Signature: Yes Med Rec Note Co-signed by Attending: Coverage Notice Comment: myra for [facility] Last DP export: 04/14/20 4:43 p Patient Name: CHYNA HICKEY Page [id number] at 2018 All edits/amendments must be made on the electronic document DICTATION DATE: 04/16/202016 TRANSACTION COORDINATOR: JEREMIE 04/16/20 2017 RPT#: [id number] DC DATE: STATUS: ADM IN [facility] [address] [place] [address] END OF REPORT
--- NOTE | 2020-04-16 20:24 | MORECARE ---
CASE MANAGEMENT DISCHARGE SUMMARY PATIENT: CHYNA HICKEY UNIT: [id number] ADM DATE: 03/25/20 AGE: 74 : 44 SEX: M ROOM/BED: D.2307 AUTHOR: OSVALDO,DOC PHYSICIAN: REFERRING PHYSICIAN: JUAN CARLOS ROMERO MD DATE OF SERVICE: 04/16/20 Discharge Plan Patient Name: CHYNA HICKEY Facility: [facility]:[place] : 1945 Planned Disposition: Home or Self Care Anticipated Discharge Date: Discharge Date: Expected LOS: Initial Reviewer: [email or web address] Initial Review Date: 03/25/2020 Generated: 04/16/20 9:24 pm Comments DCP- Discharge Planning Updated by [id number]: Angelina Cho on 04/16/20 7:[address] CM attempted to call nephew Jamie Robert [phone] multiple times today and no answer. CM will continue to try to get in contact with family for LTACH placement. Patient has been placed on vent today. DCP- Discharge Planning Updated by [id number]: Angelina Cho on 04/16/20 7:[address] LATE ENTRY 04/15/20 CM attempted to call patient's nephew that is listed as a contact Jamie Jakob [phone]. CM did not get an answer and no return call. CM will continue to follow and assist as needed with discharge planning / needs. DCP- Discharge Planning Updated by [email or web address]: Angelina Cho on 04/14/20 4:[address] CM spoke with patient regarding LTACH placement. CM explained what LTACH was and gave a list of facilities in the state. Patient is still unsure as to what LTACH is an stated that if he had to go anywhere he wanted to go to [facility]. CM explained that [facility] was a snf facility. CM left list with LTACH with patient and CM will come back tomorrow and check on his decision after he speaks with physician. Patient doesn't understand the high amount of 02 that he is on. CM will continue to follow and assist as needed with discharge planning / needs. DCP- Discharge Planning Updated by [id number]: Saundra Noriega on 04/09/20 1:[address] Isabella, respiratory therapist with [facility], here and setting up patient's Trilogy. Patient does not have a home concentrator and will need an order with the liter amount prior to discharge. He does have portable tanks, but may need a larger tank at [place] for home use. CM will continue to follow and assist with discharge planning/needs. DCP- Discharge Planning Updated by [id number]: Saundra Noriega on 04/08/20 1:[address] CM met with patient to discuss BIPAP/trilogy order from Dr. Emmanuel. Patient would like me to use [facility]. He states he gets his oxygen from [facility]. I called Arlin and Fred and clinical faxed. CM will continue to follow and assist with discharge planning/needs. DCP- Discharge Planning Updated by [id number]: Kathleen Miramontes on 03/31/20 12:[address] CM met with patient regarding DC needs/plans. Patient is A/O, lives in his home independently and states that his brother, González Gallegos, lives with him. PCP: Dr. Kelsea West. [facility]. DME: walker, O2, Portable O2 ([employer]) in patient's room. Patient gives permission to speak with his brother, if needed. Denies use of community resources. CM discussed HHS, Rehab, SNF, but patient states he does not require any of those services at this time. patient states he can safely return to his previous environment. Denies being hospitalized within the past 30 days. Transportation will be provided by his brother at time of DC. DCPIA - Discharge Planning Initial Assessment Updated by [id number]: Kathleen Miramontes on 03/31/20 12:55 pm * Is the patient Alert and Oriented? Yes * How many steps to enter\exit or inside your home? 5 w/rails * PCP Dr. Kelsea West * [facility]acy [facility] * Preadmission Environment Home with Family * ADLs Independent * Equipment Oxygen Rolling Walker * Other Equipment Portable O2 from [employer] * List name and contact numbers for known caregivers / representatives who currently or will assist patient after discharge: González Gallegos (brother) ?number. Jamie Robert (nephew) [phone] * Verbal permission to speak to the caregivers and representatives has been obtained from the patient. Yes * Community resources currently utilized None * Additional services required to return to the preadmission environment? No * Can the patient safely return to the preadmission environment? Yes * Has this patient been hospitalized within the prior 30 days at any hospital? No Coverage Notice Reviewer: [id number] Iris Noriega Notice Issued Date-Time: 04/08/2020 12:50 Notice Type: Patient Choice Letter Notice Delivered To: Patient Relationship to Patient: Self Line Up Machine Operator Name: Delivery Method: HAND - Hand Delivered Viki Days: Prior Verbal Notification: Recipient Understood Notice: Yes Recipient Signature: Yes Med Rec Note Co-signed by Attending: Coverage Notice Comment: myra for [facility] Last DP export: 04/16/20 7:18 p Patient Name: CHYNA HICKEY Page [id number] at 2023 All edits/amendments must be made on the electronic document DICTATION DATE: 04/16/202023 SEAM STAYER: JEREMIE 04/16/202023 RPT#: [id number] DC DATE: STATUS: ADM IN [facility] [address] [place] [address] END OF REPORT
--- NOTE | 2020-04-16 22:11 | NUR ---
PT BROTHER AT BEDSIDE, UPDATE PROVIDED AND QUESTIONS ANSWERED. DENIES FURTHER NEEDS AT THIS TIME.
--- NOTE | 2020-04-16 23:30 | NUR ---
REASSESSMENT COMPLETE, NO NEW CHANGES AT THIS TIME. VSS, NO S/S OF ACUTE DISTRESS OR PAIN. CPOC.
[2020-04-17] VITALS (23 sets, daily range): BP systolic 86–152; BP diastolic 58–95
--- NOTE | 2020-04-17 01:30 | NUR ---
NO CHANGES AT THIS TIME. VSS, NO S/S OF ACUTE DISTRESS. CPOC.
--- NOTE | 2020-04-17 03:15 | NUR ---
PAITENT SIT STRAIGHT UP IN BED. SPO2 DECREASED TO LOW 80'S. SEDATION INCREASED PER PROTOCOL. RESPIRATORY CALLED. FIO2 INCREASED TO 100%.
--- NOTE | 2020-04-17 03:25 | NUR ---
SPO2 INCREASED 93% AT THIS TIME AND PATIENT IS RESTING QUIETLY WITH EYES CLOSED.
--- NOTE | 2020-04-17 04:10 | NUR ---
PT SEDATED, VSS -SPO2 100. I&O COMPLETED PER FLOWSHEET. NO S/S OF ACUTE DISTRESS AT THIS TIME. ROOM VISIBLE FROM NURSES STATION. CPOC.
[2020-04-17 07:08] LABS: ANION GAP 10.1 mmol/L (8-16); CALCIUM 9.2 mg/dL (8.5-10.1); CARBON DIOXIDE 27.2 mmol/L (21.0-32.0); CREATININE - SERUM 1.5 mg/dL (0.6-1.3); MAGNESIUM - SERUM 2.7 mg/dL (1.8-2.4); POTASSIUM - SERUM 4.3 mmol/L (3.5-5.1)
--- NOTE | 2020-04-17 08:04 | EC ---
PATIENT:CHYNA HICKEY DATE OF SERVICE: 03/25/20 SEX: M MEDICAL RECORD: [id number] DATE OF : 43 LOCATION:[facility] D230 AGE OF PATIENT: 74 ADMISSION DATE: 03/25/20 REFERRING PHYSICIAN: INTERPRETING PHYSICIAN: ANGEL LUIS ESCOBAR MD ECHOCARDIOGRAM REPORT ECHO CHARGES 5 ECHO LIMITED Date: 04/11/20 CLINICAL DIAGNOSIS: HUPOXEMIA, SHUNT ECHOCARDIOGRAPHIC MEASUREMENTS (adult normal given) AC root (d.<3.7cm) 0 cm LV Septum d (<1.2 cm> 0 cm Valve Excursion 0 cm LV Septum (systole) 0 cm Left Atria (s.<4.0cm> 0 cm LVPW d(<1.2cm) 0 cm RV (d.<2.3cm) 0 cm LVPW (sytole) 0 cm LV diastole(<5.6CM) 0 cm MV E-F(>70mm/sec) 0 cm LV systole 0 cm LVOT Diameter 1.9 cm MV exc.(>10mm) 0 cm Est.ejection fraction (50-75%) % DOPPLER: LVIT cm/sec A 0 cm/sec E 0 cm/sec LA 0 cm/sec RVSP 0 mmHg LVOT 0 cm/sec AOP1/2T 0 m/s Asc. Ao 0 cm/sec RVOT 0 cm/sec RA 0 cm/sec PA 0 cm/sec AV Gradient Peak 0 mmHg AV Mean 3.07 mmHg AV Area 0 cm MV Gradient Peak 0 mmHg MV Mean 0 mmHg MV Area 0 cm COMMENTS: Urogynecology Physician: Albina WANGDAVID MELBA Product Safety Consultant: 3 Dr. Nunez TAPE# PACS Pericardial Effusion Y DATE OF SERVICE: This is a limited study, Bubble study. No LVH. LV internal dimension is normal. LV appears to be mildly hypokinetic. EF lower limits of normal to mildly reduced at 40% to 45%. Aortic valve is tricuspid. No evidence of stenosis with good valve excursion. Left atrium appears normal. Mitral valve appears normal. Trace MR. Right-sided chambers are grossly normal. Moderate TR. Note is made of a small PFO versus ASD via Bubble study. ECHOCARDIOGRAM REPORT [id number] CHYNA HICEKY TRANSINT:[id number] Voice Confirmation ID: [id number] DOCUMENT ID: [id number] ANGEL LUIS ESCOBAR MD at 0804 CC: [id number] DICTATION DATE: 04/15/20 1626 IT PROGRAM ENGAGEMENT DIRECTOR: 04/16/20 0148 ADM IN [place] [address] [facility]
--- NOTE | 2020-04-17 09:00 | NUR ---
NO VISITORS AT THIS TIME, WILL CON'T TO MONITOR
--- NOTE | 2020-04-17 10:30 | NUR ---
DR. TAYLOR AT BEDSIDE, BRONCH PERFORMED, PT TOLERATED WELL
--- NOTE | 2020-04-17 11:00 | NUR ---
1100 BEDSIDE REPORT RECEIVED FROM JESSICA
--- NOTE | 2020-04-17 12:50 | NUR ---
1250 UPDATED PATIENTS BROTHER AT BEDSIDE EMOTIONAL SUPPORT PROVIDED
--- NOTE | 2020-04-17 13:00 | NUR ---
REPOSITIONED FOR COMFORT, ORAL CARE PROVIDED
--- NOTE | 2020-04-17 13:06 | MORECARE ---
CASE MANAGEMENT DISCHARGE SUMMARY PATIENT: CHYNA HICKEY UNIT: [id number] ADM DATE: 03/25/20 AGE: 74 : 43 SEX: M ROOM/BED: D.2307 AUTHOR: OSVALDODOC PHYSICIAN: REFERRING PHYSICIAN: JUAN CARLOS ROMERO MD DATE OF SERVICE: 04/17/20 Discharge Plan Patient Name: CHYNA HICKEY Facility: [facility]:[place] : 1945 Planned Disposition: Home or Self Care Anticipated Discharge Date: Discharge Date: Expected LOS: Initial Reviewer: [email or web address] Initial Review Date: 03/25/2020 Generated: 04/17/20 2:06 pm Comments DCP- Discharge Planning Updated by [email or web address]: Aniya Camarillo on 04/17/20 11:[address] Patient Name: CHYNA HICKEY Admission Status: ER Accout number: [id number] Admission Date: 03-25-2020 : 1945 Admission Diagnosis:ACUTE KIDNEY FAILURE, UNSPECIFIED Attending: JUAN CARLOS MYRICK Current LOS: 23 Anticipated DC Date: Planned Disposition: Home or Self Care Primary Insurance: [employer]NA CHOICE PPO [facility] Discharge Planning Comments: CM SPOKE WITH MARANDA ENGEL, BROTHER TO PATIENT, ABOUT LTACH PLACEMENT. HE STATES HE WILL COME TOMORROW AND PIZZA [employer]F LTACH INFORMATION. CM WILL FOLLOW AND ASSIST NEEDED. Veneer Gluer: Aniya Camarillo DCP- Discharge Planning Updated by [id number]: Angelina Cho on 04/16/20 7:[address] CM attempted to call nephew Jamie Jakob [phone] multiple times today and no answer. CM will continue to try to get in contact with family for LTACH placement. Patient has been placed on vent today. DCP- Discharge Planning Updated by [id number]: Angelina Cho on 04/16/20 7:[address] LATE ENTRY 04/15/20 CM attempted to call patient's nephew that is listed as a contact Jamie Robert [phone]. CM did not get an answer and no return call. CM will continue to follow and assist as needed with discharge planning / needs. DCP- Discharge Planning Updated by [email or web address]: Angelina Cho on 04/14/20 4:[address] CM spoke with patient regarding LTACH placement. CM explained what LTACH was and gave a list of facilities in the state. Patient is still unsure as to what LTACH is an stated that if he had to go anywhere he wanted to go to [facility]. CM explained that [facility] was a [facility] facility. CM left list with LTACH with patient and CM will come back tomorrow and check on his decision after he speaks with physician. Patient doesn't understand the high amount of 02 that he is on. CM will continue to follow and assist as needed with discharge planning / needs. DCP- Discharge Planning Updated by [email or web address]: Saundrakaty Noriega on 04/09/20 1:[address] Isabella, respiratory therapist with [facility], here and setting up patient's Trilogy. Patient does not have a home concentrator and will need an order with the liter amount prior to discharge. He does have portable tanks, but may need a larger tank at [place] for home use. CM will continue to follow and assist with discharge planning/needs. DCP- Discharge Planning Updated by [id number]: Saundra Velazquezflynn on 04/08/20 1:[address] CM met with patient to discuss BIPAP/trilogy order from Dr. Emmanuel. Patient would like me to use [facility]. He states he gets his oxygen from [facility]. I called [facility] and [facility] and clinical faxed. CM will continue to follow and assist with discharge planning/needs. DCP- Discharge Planning Updated by [id number]: Kathleen Miramontes on 03/31/20 12:[address] CM met with patient regarding DC needs/plans. Patient is A/O, lives in his home independently and states that his brother, Maranda Gallegos, lives with him. PCP: Dr. Kelsea West. [facility]. DME: walker, O2, Portable O2 ([employer]) in patient's room. Patient gives permission to speak with his brother, if needed. Denies use of community resources. CM discussed HHS, Rehab, SNF, but patient states he does not require any of those services at this time. patient states he can safely return to his previous environment. Denies being hospitalized within the past 30 days. Transportation will be provided by his brother at time of DC. DCPIA - Discharge Planning Initial Assessment Updated by [email or web address]: Kathleenondina Miramontes on 03/31/20 12:55 pm * Is the patient Alert and Oriented? Yes * How many steps to enter\exit or inside your home? 5 w/rails * PCP Dr. Kelsea West * Pharmacy [facility] * Preadmission Environment Home with Family * ADLs Independent * Equipment Oxygen Rolling Walker * Other Equipment Portable O2 from [employer] * List name and contact numbers for known caregivers / representatives who currently or will assist patient after discharge: Maranda Gallegos (brother) ?number. Jamie Robert (nephew) [phone] * Verbal permission to speak to the caregivers and representatives has been obtained from the patient. Yes * Community resources currently utilized None * Additional services required to return to the preadmission environment? No * Can the patient safely return to the preadmission environment? Yes * Has this patient been hospitalized within the prior 30 days at any hospital? No Coverage Notice Reviewer: [email or web address] Iris Noriega Notice Issued Date-Time: 04/08/2020 12:50 Notice Type: Patient Choice Letter Notice Delivered To: Patient Relationship to Patient: Self Corporate Financial Analyst Name: Delivery Method: HAND - Hand Delivered Viki Days: Prior Verbal Notification: Recipient Understood Notice: Yes Recipient Signature: Yes Med Rec Note Co-signed by Attending: Coverage Notice Comment: myra for Fred Shine DP export: 04/16/20 7:24 p Patient Name: CHYNA HICKEY Page [phone] at 1306 All edits/amendments must be made on the electronic document DICTATION DATE: 04/17/20 1306 SOLAR PHOTOVOLTAIC INSTALLER: JEREMIE 04/17/20 1306 RPT#: [id number] DC DATE: STATUS: ADM IN [facility] [address] [place] [address] END OF REPORT
--- NOTE | 2020-04-17 15:00 | NUR ---
REASSESSMENT COMPLETE PER FLOW SHEET. VSS. PT RESTING COMFORTABLY WILL CONTINUE TO MONITOR
--- NOTE | 2020-04-17 17:15 | NUR ---
REPOSITIONED FOR COMFORT, ORAL CARE PROVIDED
--- NOTE | 2020-04-17 19:00 | NUR ---
REPORT RECEIVED. PT SEDATED ON VENT. NO ACUTE DISTRESS NOTED AT THIS TIME. LT UPPER ARM PICC INFUSING, SEE FLOWSHEET. ASSESSMENT COMPLETED, SEE FLOWSHEET. WILL CONTINUE TO MONITOR.
--- NOTE | 2020-04-17 21:00 | NUR ---
REPOSITIONED FOR COMFORT. WILL CONTINUE TO MONITOR.
--- NOTE | 2020-04-17 23:00 | NUR ---
REASSESSMENT COMPLETED, SEE FLOWSHEET.
[2020-04-18] VITALS (21 sets, daily range): BP systolic 113–150; BP diastolic 63–99
--- NOTE | 2020-04-18 01:00 | NUR ---
REPOSITIONED FOR COMFORT. NO ACUTE DISTRESS NOTED.
--- NOTE | 2020-04-18 03:00 | NUR ---
REASSESSMENT COMPLETED, SEE FLOWSHEET. WILL CONTINUE TO MONITOR.
--- NOTE | 2020-04-18 05:00 | NUR ---
PT REPOSITIONED FOR COMFORT. WILL CONTINUE TO MONITOR
--- NOTE | 2020-04-18 07:00 | NUR ---
RECEIVED BEDSIDE REPORT ON PATIENT AND ASSUMED CARE. PATIENT ON VENT, ALERT AND FOLLOWING COMMANDS, ETT 8.0, 21 CM, BBS - CLEAR AND EQUAL, VENT SETTINGS ARE TV 450, AC 25, PEEP 10, FIO2 - 70%. SPO2 - 98%, PICC LINE TO UPPER LEFT ARM, INFUSING DOBUTAMINE AT 2.5 MCG/KG/MIN (4.7 ML/HR) AND NS AT 50 ML/HR. IV 22 GA TO LEFT FA, NSL. THOMAS CATH IN PLACE WITH CLEAR YELLOW UOP NOTED. PATIENT TURNED AND REPOSITIONED IN BED. VSS. CM - ATRIAL FLUTTER WITH PVCS NOTED.
[2020-04-18 08:18] LABS: HEMOGLOBIN 9.8 g/dL (13.5-17.5)
[2020-04-18 08:56] LABS: ALBUMIN 2.3 g/dL (3.4-5.0); ANION GAP 11.8 mmol/L (8-16); BILIRUBIN - TOTAL 0.47 mg/dL (0.2-1.3); CALCIUM 9.3 mg/dL (8.5-10.1); CREATININE - SERUM 1.7 mg/dL (0.6-1.3); MAGNESIUM - SERUM 2.6 mg/dL (1.8-2.4); POTASSIUM - SERUM 3.8 mmol/L (3.5-5.1); PROTEIN - SERUM 5.7 g/dL (6.4-8.2)
--- NOTE | 2020-04-18 09:00 | NUR ---
NO VISITORS AT THIS TIME, WILL CON'T TO MONITOR
[2020-04-18 09:10] LABS: FUNGUS STAIN Final report (())
--- NOTE | 2020-04-18 09:36 | NUR ---
Nutrition follow-up: Pt intubated, sedated Pulmocare started @ 20 ml/hr via OGT Family does not want trach/PEG at this time. Labs reviewed Wt: 136# Recommend advancing TF to goal rate of 50 ml/hr with 100 ml H2O flush q [address]N following.
--- NOTE | 2020-04-18 11:00 | NUR ---
REASSESSMENT COMPLETE, NO CHANGES NOTED, VSS, WILL CON'T TO MONITOR
--- NOTE | 2020-04-18 13:00 | NUR ---
REPOSITIONED FOR COMFORT, NO OTHER NEEDS NOTED
--- NOTE | 2020-04-18 15:06 | NUR ---
REASSESSMENT COMPLETE, NO CHANGES NOTED, PT RESTING AT THIS TIME, REPOSITIONED FOR COMFORT, ORAL CARE PROVIDED,
--- NOTE | 2020-04-18 17:30 | NUR ---
COMPLETE BATH AND LINEN CHANGE, PT TOLERATED WELL
--- NOTE | 2020-04-18 19:45 | NUR ---
RECEIVED CARE OF PT, ASSESSMENT PER FLOWSHEET. HR A-FLUTTER ON CM, PT AWAKE ON VENT, AGITATED AT TIME, SHAKING HEAD AND REFUSING ORAL CARE/SUCTIONING. REFUSING TO BE TURNED AT THIS TIME, BED LOW, WILL MONITOR.
--- NOTE | 2020-04-18 21:30 | NUR ---
PT BROTHER AT BEDSIDE, ALL QUESTIONS ANSWERED, UPDATE GIVEN.
[2020-04-19] VITALS (22 sets, daily range): BP systolic 104–140; BP diastolic 8–99
--- NOTE | 2020-04-19 01:50 | NUR ---
PT ALLOWED ORAL CARE AND REPOSITIONING AT THIS TIME, REMAINS IN ATRIAL FLUTTER ON CM, SUPPORTED WITH HEEL WEDGES AND PILLOWS.
--- NOTE | 2020-04-19 02:50 | NUR ---
RESIDUAL OF 3CC NOTED, PULMOCARE INCREASED TO 30CC/HR.
[2020-04-19 06:27] LABS: ANION GAP 11.2 mmol/L (8-16); CALCIUM 9.4 mg/dL (8.5-10.1); CARBON DIOXIDE 26.1 mmol/L (21.0-32.0); CREATININE - SERUM 1.4 mg/dL (0.6-1.3); MAGNESIUM - SERUM 2.6 mg/dL (1.8-2.4); POTASSIUM - SERUM 3.3 mmol/L (3.5-5.1)
[2020-04-19 06:28] LABS: BASOPHILS 0 % (0-2); EOSINOPHILS 0 % (0-7); HEMATOCRIT 32.2 % (42.0-54.0); HEMOGLOBIN 9.9 g/dL (13.5-17.5); IMMATURE GRANULOCYTES 0.4 % (0-5); LYMPHOCYTES 2.3 % (15-50); MCHC 30.7 g/dL (31.0-37.0); MCV 94.4 fL (80.0-100.0); MEAN PLATELET VOLUME 10.2 fL (7.4-10.4); MONOCYTES 5.8 % (2-11); NEUTROPHILS 91.5 % (40-80); RBC 3.41 10x6/uL (4.20-6.10); RDW 20.7 % (11.5-14.5); WBC 14.6 10x3/uL (4.8-10.8)
[2020-04-19 06:29] LABS: PLATELET COUNT 236 10x3/uL (130-400)
--- NOTE | 2020-04-19 09:02 | NUR ---
0700 REPORT RECIEVED AND CARE ASSUMED OF PATIENT.. PT IS ORALLY INTUBATED AND ON VENT THERE IS NO SEDATION.. ABGs ARE DONE BY RT.. 4591 DR TAYLOR IN TO SEE PATIENT AND UPDATE IS GIVEN...
--- NOTE | 2020-04-19 14:22 | NUR ---
0930 MEDS GIVEN.. PT IS AWAKE AND IS WRITING NOTES TO COMMUNICATE.. 1030 PT SELF EXTUBATED.. PLACED ON BIPAP O2 50% BY RT... DR TAYLOR IN UNIT AND INFORMED.. 1130 REMAINS ON BIPAP O2 AND IS DOING WELL 1230 WIHTOUT CHANGES..
--- NOTE | 2020-04-19 17:28 | NUR ---
1330 RESTING QUIETLY WITHOUT C/O CONTINUES ON BIPAPAT 50% 1430 LAB IN TO DRAW VANC TROUGH.. UNABLE TO DRAW FROM RED PORT OF PICC LINE.. 1530 I AND O DONE.. PT REMAINS ON BIPAP WATCHING TV 1630 MEDS GIVEN.. PT IS REFUSING PO MEDS.. TAKING ICE CHIPS WITHOUT DIFFICULTY.. 1730 CONTINUES TO REFUSE PO MEDS.. REMAINS ON NASAL CANNULA O2 SAT 97% AT THIS TIME.. CONSUMED ICD CHIPS WITHOUT DIFFICULTY
--- NOTE | 2020-04-19 21:00 | NUR ---
PT UNABLE TO TOLERATE HAVING BIBAP OFF TO TAKE PO MEDS, AND TAKES ELIQUIS BID. CALLED DR LONG TO UPDATE. ORDERS RECIEVED TO ADMINISTER LOVENOX SUB Q BID. REPOSITONED FOR COMFORT.
--- NOTE | 2020-04-19 23:00 | NUR ---
REASSESSMENT COMPLETE. PT AWAKE, ALERT WATCHING TV. REPOSITIONED. ATTEMPTED TO PROVIDE CHG BATH. PATIENT REFUSED. STATED HE DID NOT WANT A BATH TONITE. REPOSITIONED.
[2020-04-20] VITALS (23 sets, daily range): BP systolic 111–176; BP diastolic 77–115
--- NOTE | 2020-04-20 00:12 | NUR ---
HEAD TO TOE ASSESSMENT COMPLETED. PATIENT AWAKE, ALERT CONFUSED TO TIME AND SITUATION. REORIENTED TO ENVIORNMENT. PT PLEASANTLY CONFUSED. PT MOUTH BREATHER ON BIPAP AT 40%. WITH MINIMAL MOVEMENT PT DESATS TO MID 80'S AND TAKES 5 MINUTES TO RECOVER. PATIENT SITTING UP IN BED WATCHING TV. CALL LIGHT IN REACH. STEFF CONTINUE TO MONITOR.
--- NOTE | 2020-04-20 01:00 | NUR ---
PT AWAKE WATCHING TV. REPOSITIONED. PT DENIES NEEDS. WILL CONTINUE TO MONITOR.
--- NOTE | 2020-04-20 03:00 | NUR ---
REASSESSMENT COMPLETED. NO CHANGES SINCE LAST ASSESSMENT. REPOSITIONED. DENIES NEEDS AT THIS TIME.
[2020-04-20 04:35] LABS: BASOPHILS 0 % (0-2); EOSINOPHILS 0 % (0-7); HEMATOCRIT 32.8 % (42.0-54.0); HEMOGLOBIN 9.9 g/dL (13.5-17.5); IMMATURE GRANULOCYTES 0.4 % (0-5); LYMPHOCYTES 1.4 % (15-50); MCH 29.2 pg (26.0-34.0); MCHC 30.2 g/dL (31.0-37.0); MEAN PLATELET VOLUME 9.9 fL (7.4-10.4); MONOCYTES 3.7 % (2-11); NEUTROPHILS 94.5 % (40-80); PLATELET COUNT 205 10x3/uL (130-400); RBC 3.39 10x6/uL (4.20-6.10); RDW 21.2 % (11.5-14.5); WBC 13.8 10x3/uL (4.8-10.8)
[2020-04-20 04:36] LABS: MCV 96.8 fL (80.0-100.0)
[2020-04-20 04:44] LABS: CALCIUM 9.8 mg/dL (8.5-10.1); CARBON DIOXIDE 28.3 mmol/L (21.0-32.0); CREATININE - SERUM 1.2 mg/dL (0.6-1.3)
[2020-04-20 04:54] LABS: POTASSIUM - SERUM 4.3 mmol/L (3.5-5.1)
--- NOTE | 2020-04-20 05:00 | NUR ---
PT TOOK OFF BIPAP. PT DESAT TO 55%. REAPPLIED BIPAP, AND PROVIDED EDUCATION FOR THE NEED OF WEARNING IT. PT NODDED WITH UNDERSTANDING. IT TOOK 15 MINUTES FOR PATIENT TO RECOVER. REPOSITIONED. PT RESUMED POSITION ON BACK. STATED HE WANTED TO WATCH TV. PROVIDED EDUCATION ABOUT PREVENTING REDNESS AND SORES ON BOTTOM. ENCOURAGED PT TO REPOSITION EVERY 2 HOURS.
--- NOTE | 2020-04-20 11:13 | NUR ---
0700 BEDSIDE REPORT RECEIVED FROM OUTGOING BOX GLUER COMPLETE REPOSITIONED BPAP MASK 100% O2 COMPLETE CHG BATH AND TOTAL LINEN CHANGE PAPR RADHA PLACED UNDER RIGHT ARM FOR WEEPING
--- NOTE | 2020-04-20 11:21 | NUR ---
0900 REMINDED PT NOT TO PULL BPAP MASK OFF ADJUSTED MASK AND REPOSITIONED O2 SAT MONITOR TO HAND BPAP AT 100%
--- NOTE | 2020-04-20 11:23 | NUR ---
1000 02 SAT 100% WHEN MASK IS IN PLACE
--- NOTE | 2020-04-20 15:50 | NUR ---
1200 PLACED ON VAPERTHERM AT 1OO% 02 SAT REMAINS IN THE LOW 80s PUT BACK ON BPAP AT 100%
--- NOTE | 2020-04-20 15:52 | NUR ---
1400 DECREASED O2 TO 75% MONITORING CLOSELY AT O2 SAT
--- NOTE | 2020-04-20 15:53 | NUR ---
1600 PLACED BACK ON BPAP AAT 100% SLOWELY CREEPING UP INTO THE 90s PEEKING AT 94% ENCOURAGED REST
--- NOTE | 2020-04-20 22:10 | NUR ---
1899-ASSESSMENT COMPLETED. CONFUSION NOTED. ON BIPAP AT 80% 1999-PATIENT DESAT OFTEN AND USUALLY RECOVERS WITHIN A COUPLE MINS. 2099- LEFT ARM PICC DRESSING SOILED. CHANGED VIA PROTOCOL. 2139-PATIENT TRYING TO GET OOB. BED ALARM ON.
--- NOTE | 2020-04-20 23:00 | NUR ---
RE-ASSESSMENT COMPLETED. NO CHANGES SINCE LAST ASSESSMENT. PATIENT TRIED TO GET OBB, CONFUSION NOTED. BED ALARM ON
[2020-04-21] VITALS (24 sets, daily range): BP systolic 108–152; BP diastolic 85–101
--- NOTE | 2020-04-21 01:00 | NUR ---
BIPAP ON AT 80%. REPOSITIONED
--- NOTE | 2020-04-21 03:00 | NUR ---
RE-ASSESSMENT COMPLETED. NO CHANGES SINCE LAST ASSESSMENT
[2020-04-21 03:48] LABS: BASOPHILS 0 % (0-2); EOSINOPHILS 0 % (0-7); HEMATOCRIT 32.9 % (42.0-54.0); HEMOGLOBIN 9.8 g/dL (13.5-17.5); IMMATURE GRANULOCYTES 0.5 % (0-5); LYMPHOCYTES 2.6 % (15-50); MCH 28.9 pg (26.0-34.0); MCHC 29.8 g/dL (31.0-37.0); MCV 97.1 fL (80.0-100.0); MEAN PLATELET VOLUME 10.3 fL (7.4-10.4); MONOCYTES 3.9 % (2-11); PLATELET COUNT 207 10x3/uL (130-400); RBC 3.39 10x6/uL (4.20-6.10); RDW 20.9 % (11.5-14.5); WBC 12.9 10x3/uL (4.8-10.8)
[2020-04-21 04:05] LABS: CALCIUM 9.6 mg/dL (8.5-10.1); CARBON DIOXIDE 26.3 mmol/L (21.0-32.0); CREATININE - SERUM 1.3 mg/dL (0.6-1.3); MAGNESIUM - SERUM 3.1 mg/dL (1.8-2.4)
[2020-04-21 04:06] LABS: POTASSIUM - SERUM 5.3 mmol/L (3.5-5.1)
--- NOTE | 2020-04-21 05:47 | NUR ---
LOOSE BM, CHG BATH WITH COMPLETE LINEN CHANGE.
--- NOTE | 2020-04-21 09:16 | NUR ---
Nutrition follow-up: Pt self-extubated over weekend Now on BIPAP; NPO speech eval pending Labs reviewed Wt: 151# Labs reviewed RDN following
--- NOTE | 2020-04-21 09:19 | NUR ---
0900 PULLING AT BPAP MASK DESATED TO 74% ASSISTED IN PLACING ON CORRECTLY AND INCREASED O2 TO 100% SLOWLY INCREASING O2 SAT UP TO 97%
--- NOTE | 2020-04-21 09:56 | NUR ---
0930 RESTING QUIETLY WITH EYES CLOSED O2 SAT 100% BPAP SETTING 75% O2
--- NOTE | 2020-04-21 10:55 | NUR ---
1045 REMAINS IN A FLUTTER AT 99 BPM RESTING QUIETLY WITH EYES CLOSED
--- NOTE | 2020-04-21 14:30 | NUR ---
1230 DR HERNANDEZ ROUNDING ON PATIENT AND ADJUSTING THE O2 ON THE BPAP TO 65%
--- NOTE | 2020-04-21 14:32 | NUR ---
1432 PATIENT PULLING OFF BPAP ORAL CARE PROVIDED AND PLACED BPAP BACK ON AT 65% O2
--- NOTE | 2020-04-21 18:50 | NUR ---
1630 RESTING QUIETLY EYES CLOSED
--- NOTE | 2020-04-21 18:51 | NUR ---
1800 AWAKE NO DISTRESS NOTEDW
--- NOTE | 2020-04-21 19:30 | NUR ---
SHIFT ASSESSMENT COMPLETE. PATIENT RESTING QUIETLY AT THIS TIME. CALL LIGHT WITHIN REACH, BED IN LOW POSITION, AND WILL CONTINUE TO MONITOR.
--- NOTE | 2020-04-21 21:00 | NUR ---
PATIENT REPOSITIONED FOR SKIN CARE AND COMFORT. PATIENT BECAME VERY SOB WITH MINIMAL MOVEMENT. SPO2 DECREASED TO 88%. CALL LIGHT WITHIN REACH, BED IN LOW POSITION, AND WILL CONTINUE TO MONITOR.
--- NOTE | 2020-04-21 21:45 | NUR ---
PATIENT IS RESTING AT THIS TIME. SPO2 INCREASED TO 91-92%.
--- NOTE | 2020-04-21 23:00 | NUR ---
REASSESSMENT COMPLETE. CALL LIGHT WITHIN REACH, BED IN LOW POSITION, AND WILL CONTINUE TO MONITOR.
[2020-04-22] VITALS (23 sets, daily range): BP systolic 85–146; BP diastolic 61–94
--- NOTE | 2020-04-22 01:00 | NUR ---
REPOSITIONED PATIENT AND AGAIN HE BECAME VERY SOB. HOB AT 90 DEGREES. SPO2 91%. CALL LIGHT WITHIN REACH, BED IN LOW POSITION, AND WILL CONTINUE TO MONITOR.
--- NOTE | 2020-04-22 03:00 | NUR ---
REASSESSMENT COMPLETE. NO CHANGES. CALL LIGHT WITHIN REACH, BED IN LOW POSITION, AND WILL CONTINUE TO MONITOR.
[2020-04-22 05:28] LABS: BASOPHILS 0 % (0-2); EOSINOPHILS 0 % (0-7); HEMATOCRIT 29.3 % (42.0-54.0); HEMOGLOBIN 9.1 g/dL (13.5-17.5); IMMATURE GRANULOCYTES 0.6 % (0-5); LYMPHOCYTES 2.6 % (15-50); MCH 29.5 pg (26.0-34.0); MCHC 31.1 g/dL (31.0-37.0); MEAN PLATELET VOLUME 10.6 fL (7.4-10.4); MONOCYTES 4.1 % (2-11); NEUTROPHILS 92.7 % (40-80); PLATELET COUNT 200 10x3/uL (130-400); RBC 3.08 10x6/uL (4.20-6.10); RDW 20.9 % (11.5-14.5); WBC 11.8 10x3/uL (4.8-10.8)
[2020-04-22 05:29] LABS: MCV 95.1 fL (80.0-100.0)
[2020-04-22 05:38] LABS: ALBUMIN 2.3 g/dL (3.4-5.0); ANION GAP 12.5 mmol/L (8-16); BILIRUBIN - TOTAL 0.49 mg/dL (0.2-1.3); CALCIUM 9.2 mg/dL (8.5-10.1); CARBON DIOXIDE 25.1 mmol/L (21.0-32.0); CREATININE - SERUM 1.4 mg/dL (0.6-1.3); MAGNESIUM - SERUM 3.1 mg/dL (1.8-2.4); POTASSIUM - SERUM 5.6 mmol/L (3.5-5.1); PROTEIN - SERUM 5.5 g/dL (6.4-8.2)
--- NOTE | 2020-04-22 06:25 | NUR ---
SPOKE WITH SUNSHINE LYNN ABOUT PO LASIX AND SHE WANTED TO HOLD UNTIL DR. ARANA SAW PATIENT THIS AM.
--- NOTE | 2020-04-22 07:15 | NUR ---
REPORT RECIEVED, SHIFT ASSESSMENT COMPLETE, PT IS CONFUSED ON BIPAP, ATTEMPTING TO PULL IT OFF, ON 65% FIO2 WITH 97% O2 SAT, ALL PPP, VSS, CALL LIGHT IN REACH
--- NOTE | 2020-04-22 09:15 | NUR ---
NO VISITORS AT THIS TIME, WILL CON'T TO MONITOR
--- NOTE | 2020-04-22 11:00 | NUR ---
REASSESSMENT COMPLETE, NO CHANGES NOTED, REPOSITIONED FOR COMFORT,
--- NOTE | 2020-04-22 13:00 | NUR ---
PT RESTING AT THIS TIME, NO NEEDS NOTED, WILL CON'T TO MONITOR
[2020-04-22 14:08] LABS: FUNGUS CULTURE RESULT 1 Candida albicans (()); FUNGUS MYCOLOGY CULTURE Preliminary report (())
--- NOTE | 2020-04-22 15:09 | NUR ---
REASSESSMENT COMPLETE, NO CHANGES NOTED, WILL CON'T TO MONITOR
--- NOTE | 2020-04-22 17:15 | NUR ---
COMPLETE BATH AND LINEN CHANGE, PT TOLERATED WELL
--- NOTE | 2020-04-22 19:33 | NUR ---
PATIENT TRYING TO CLIMB OUT OF BED UPON ENTERING ROOM. PATIENT NODDED YES TO HAVING DIFFICULTY BREATHING. RESPOSITIONED PATIENT IN BED AND RAISED HOB. SHIFT ASSESSMENT COMPLETE. CALL LIGHT WITHIN REACH, BED IN LOW POSITION, AND WILL CONTINUE TO MONITOR. SPO2 91% AT THIS TIME.
[2020-04-23] VITALS (7 sets, daily range): BP systolic 84–114; BP diastolic 62–87
[2020-04-23 05:54] LABS: BASOPHILS 0 % (0-2); EOSINOPHILS 0 % (0-7); HEMATOCRIT 28.6 % (42.0-54.0); HEMOGLOBIN 8.5 g/dL (13.5-17.5); IMMATURE GRANULOCYTES 0.5 % (0-5); LYMPHOCYTES 3.2 % (15-50); MCH 28.4 pg (26.0-34.0); MCHC 29.7 g/dL (31.0-37.0); MCV 95.7 fL (80.0-100.0); MEAN PLATELET VOLUME 10.1 fL (7.4-10.4); NEUTROPHILS 93.3 % (40-80); PLATELET COUNT 181 10x3/uL (130-400); RBC 2.99 10x6/uL (4.20-6.10); RDW 21.2 % (11.5-14.5)
[2020-04-23 06:03] LABS: WBC 17.4 10x3/uL (4.8-10.8)
[2020-04-23 06:12] LABS: ANION GAP 9.9 mmol/L (8-16); CALCIUM 9.4 mg/dL (8.5-10.1); CARBON DIOXIDE 28.2 mmol/L (21.0-32.0); CREATININE - SERUM 1.5 mg/dL (0.6-1.3); POTASSIUM - SERUM 5.1 mmol/L (3.5-5.1)
--- NOTE | 2020-04-23 07:15 | NUR ---
SHIFT ASSESSMENT COMPLETE, PT IS CONFUSED, ATTEMPTED TO REORIENT, ON 70% FIO2 WITH 93% O2 SAT. ALL PPP, VSS,
--- NOTE | 2020-04-23 08:20 | NUR ---
Nutrition follow-up: Pt remains NPO with BIPAP continuous at this time. ProcalAmine PPN infusing @ 75 ml/hr Labs reviewed Wt: 145# Pt not meeting estimated energy needs with current nutrition support; however, family does not want PEG placement. RDN will continue to monitor patients progress. Following.
--- NOTE | 2020-04-23 10:00 | NUR ---
PT HR DROPPING AT THIS TIME, BROTHER NOTIFIED, PT DNR
--- NOTE | 2020-04-23 10:30 | NUR ---
BROTHER AT BEDSIDE, HR CONTINUES TO DROP
--- NOTE | 2020-04-23 10:33 | NUR ---
PT ASYSTOLE ON THE MONITOR
--- NOTE | 2020-04-23 10:50 | NUR ---
GREGORY NOTIFIED AT THIS TIME,
--- NOTE | 2020-04-23 12:24 | NUR ---
HOME AT BEDSIDE. PT LEFT VIA GURNEY.
--- NOTE | 2020-04-23 16:54 | MORECARE ---
CASE MANAGEMENT DISCHARGE SUMMARY PATIENT: CHYNA HICKEY UNIT: [id number] ADM DATE: 03/25/20 AGE: 74 : 44 SEX: M ROOM/BED: D.2307 AUTHOR: OSVALDODOC PHYSICIAN: REFERRING PHYSICIAN: JUAN CARLOS ROMERO MD DATE OF SERVICE: 04/23/20 Discharge Plan Patient Name: CHYNA HICKEY Facility: [facility]:[place] : 1945 Planned Disposition: Home or Self Care Anticipated Discharge Date: Discharge Date: 04/23/2020 Expected LOS: Initial Reviewer: [email or web address] Initial Review Date: 03/25/2020 Generated: 04/23/20 5:53 pm DCP- Discharge Planning Updated by [email or web address]: Aniya Camarillo on 04/17/20 11:[address] Patient Name: CHYNA HICKEY Admission Status: ER Accout number: [id number] Admission Date: 03-25-2020 : 1945 Admission Diagnosis:ACUTE KIDNEY FAILURE, UNSPECIFIED Attending: JUAN CARLOS MYRICK Current LOS: 23 Anticipated DC Date: Planned Disposition: Home or Self Care Primary Insurance: HUMANA CHOICE PPO [facility] Discharge Planning Comments: CM SPOKE WITH MARANDA ENGEL, BROTHER TO PATIENT, ABOUT LTACH PLACEMENT. HE STATES HE WILL COME TOMORROW AND DROP WIRE BUILDER LTACH INFORMATION. CM WILL FOLLOW AND ASSIST NEEDED. Highway Worker: Aniya Camarillo DCP- Discharge Planning Updated by [email or web address]: Angelina Cho on 04/16/20 7:[address] CM attempted to call nephew Jamie Robert [phone] multiple times today and no answer. CM will continue to try to get in contact with family for LTACH placement. Patient has been placed on vent today. DCP- Discharge Planning Updated by [id number]: Angelina Cho on 04/16/20 7:[address] LATE ENTRY 04/15/20 CM attempted to call patient's nephew that is listed as a contact Jamie Robert [phone]. CM did not get an answer and no return call. CM will continue to follow and assist as needed with discharge planning / needs. DCP- Discharge Planning Updated by [email or web address]: Angelina Cho on 04/14/20 4:[address] CM spoke with patient regarding LTACH placement. CM explained what LTACH was and gave a list of facilities in the state. Patient is still unsure as to what LTACH is an stated that if he had to go anywhere he wanted to go to [facility]. CM explained that [facility] was a [facility] facility. CM left list with LTACH with patient and CM will come back tomorrow and check on his decision after he speaks with physician. Patient doesn't understand the high amount of 02 that he is on. CM will continue to follow and assist as needed with discharge planning / needs. DCP- Discharge Planning Updated by [id number]: Saundra Noriega on 04/09/20 1:[address] Isabella, respiratory therapist with [facility], here and setting up patient's Trilogy. Patient does not have a home concentrator and will need an order with the liter amount prior to discharge. He does have portable tanks, but may need a larger tank at [place] for home use. CM will continue to follow and assist with discharge planning/needs. DCP- Discharge Planning Updated by [id number]: Saundra Hari on 04/08/20 1:[address] CM met with patient to discuss BIPAP/trilogy order from Dr. Emmanuel. Patient would like me to use [facility]. He states he gets his oxygen from [facility]. I called [facility] and [facility] and clinical faxed. CM will continue to follow and assist with discharge planning/needs. DCP- Discharge Planning Updated by [id number]: Kathleen Miramontes on 03/31/20 12:[address] CM met with patient regarding DC needs/plans. Patient is A/O, lives in his home independently and states that his brother, Maranda Gallegos, lives with him. PCP: Dr. Kelsea West. [facility]acy[facility]. DME: walker, O2, Portable O2 ([employer]) in patient's room. Patient gives permission to speak with his brother, if needed. Denies use of community resources. CM discussed HHS, Rehab, SNF, but patient states he does not require any of those services at this time. patient states he can safely return to his previous environment. Denies being hospitalized within the past 30 days. Transportation will be provided by his brother at time of DC. DCPIA - Discharge Planning Initial Assessment Updated by [email or web address]: Kathleenondina Miramontes on 03/31/20 12:55 pm * Is the patient Alert and Oriented? Yes * How many steps to enter\exit or inside your home? 5 w/rails * PCP Dr. Kelsea West * Pharmacy [facility] * Preadmission Environment Home with Family * ADLs Independent * Equipment Oxygen Rolling Walker * Other Equipment Portable O2 from [employer] * List name and contact numbers for known caregivers / representatives who currently or will assist patient after discharge: Maranda Gallegos (brother) ?number. Jamie Robert (nephew) [phone] * Verbal permission to speak to the caregivers and representatives has been obtained from the patient. Yes * Community resources currently utilized None * Additional services required to return to the preadmission environment? No * Can the patient safely return to the preadmission environment? Yes * Has this patient been hospitalized within the prior 30 days at any hospital? No Coverage Notice Reviewer: [email or web address] Iris Noriega Notice Issued Date-Time: 04/08/2020 12:50 Notice Type: Patient Choice Letter Notice Delivered To: Patient Relationship to Patient: Self Toy Maker Name: Delivery Method: HAND - Hand Delivered Viki Days: Prior Verbal Notification: Recipient Understood Notice: Yes Recipient Signature: Yes Med Rec Note Co-signed by Attending: Coverage Notice Comment: myra for Fred Last DP export: 04/17/20 12:06 p Patient Name: CHYNA HICKEY Page [id number] at 1654 All edits/amendments must be made on the electronic document DICTATION DATE: 04/23/201652 TYPER: JEREMIE 04/23/201652 RPT#: [id number] DC DATE:04/23/20 STATUS: DIS IN [facility] [address] [place] [address] END OF REPORT
== END 2020-04-23 12:25 | DRG 682 ==
LOC: D.ER 11:44 → D.ICU 14:51 → D.M2 14:51 → D.ICU 04-12 14:55
PROVIDERS: Family Medicine; Internal Medicine Gastroenterology; Internal Medicine Nephrology; Internal Medicine Pulmonary Disease; ADMIT Family Medicine Adult Medicine; ATTEND Family Medicine Adult Medicine
PROC: 05HY33Z Insertion of Infusion Device into Upper Vein, Percutaneous Approach (ICD-10-PCS; 2020-04-16)
PROC: 0B9F8ZX Drainage of Right Lower Lung Lobe, Via Natural or Artificial Opening Endoscopic, Diagnostic (ICD-10-PCS; 2020-04-16)
PROC: 5A1945Z Respiratory Ventilation, 24-96 Consecutive Hours (ICD-10-PCS; 2020-04-16)
PROC: 0BH17EZ Insertion of Endotracheal Airway into Trachea, Via Natural or Artificial Opening (ICD-10-PCS; 2020-04-16)
PROC: 0B9J8ZX Drainage of Left Lower Lung Lobe, Via Natural or Artificial Opening Endoscopic, Diagnostic (ICD-10-PCS; principal; 2020-04-17)
DX: N17.0 Acute kidney failure with tubular necrosis (principal); I50.23 Acute on chronic systolic (congestive) heart failure; J18.9 Pneumonia, unspecified organism; I26.99 Other pulmonary embolism without acute cor pulmonale; J96.01 Acute respiratory failure with hypoxia; J96.02 Acute respiratory failure with hypercapnia; J44.0 Chronic obstructive pulmonary disease with (acute) lower respiratory infection; I13.0 Hypertensive heart and chronic kidney disease with heart failure and stage 1 through stage 4 chronic kidney disease, or unspecified chronic kidney disease; K92.1 Melena; J98.11 Atelectasis; I48.92 Unspecified atrial flutter; E87.5 Hyperkalemia; I25.10 Atherosclerotic heart disease of native coronary artery without angina pectoris; I48.91 Unspecified atrial fibrillation; E78.5 Hyperlipidemia, unspecified; I25.5 Ischemic cardiomyopathy; N40.0 Benign prostatic hyperplasia without lower urinary tract symptoms; N18.9 Chronic kidney disease, unspecified; D63.1 Anemia in chronic kidney disease; I27.20 Pulmonary hypertension, unspecified; D50.9 Iron deficiency anemia, unspecified; I71.4 Abdominal aortic aneurysm, without rupture; Z66 Do not resuscitate